=== PATIENT | female | born 1945 | race African-American/Black ===

== ENCOUNTER 2019-05-16 08:24 | Outpatient (CLI) | payer OTHER, SELFPAY ==
--- NOTE | 2019-05-24 23:30 | SLEEP_ITS ---
CPAP Titration DATE OF STUDY: 05/16/2019 ORDERING PHYSICIAN: Dayanna Spicer M.D. REASON FOR THIS STUDY: Home sleep test showing mild obstructive sleep apnea. HISTORY: This patient is a 73-year-old female, 63 inches tall, weighing 239 pounds with a body mass index of 42.3. On a prior sleep study 02/07/2019, the apnea-hypopnea index was 12.2 with a minimum desaturation of 80%. She presents now for a CPAP titration. MEDICAL COMORBIDITIES: 1. Hypertension. 2. Gastroesophageal reflux disease. 3. Concentration impairment. DESCRIPTION OF THE STUDY: On the Huron Sleepiness Scale, the score is 17/24. This was conducted as a full night CPAP titration using the FlightCaster multiple channel system including EOG, EEG, submental EMG, EKG, nasal and oral airflow using thermistors and nasal pressure sensors, chest and abdominal belts, body position data and pulse oximetry. The study was scored using CMS guidelines. The duration of the study was 547.3 minutes. The sleep time was 407.1 minutes. The sleep efficiency was 74.4%. Sleep latency was 24.7 minutes. REM latency was 101 minutes. The patient spent 22.1% of the study awake after sleep onset, 115.5 minutes. Sleep architecture showed 5% stage I sleep, 50.1% stage II sleep, 11.5% stage III sleep, and 9.4% stage REM. The patient spent 38% of this study supine. Sleep was fragmented with frequent shifts between wake, stage I, stage II, and REM. The apnea-hypopnea index overall was 4.4, obstructive index 3.5, and the central index 0.6. The patient had 1 obstructive hypopnea in supine REM and 1 obstructive apnea in supine REM for an index of 5.1. There was 1 obstructive apnea and 1 obstructive hypopnea in non-supine non-REM for an index of 4.7. In supine non-REM, she had 3 obstructive apneas, 3 central apneas, 2 mixed apneas, and 12 obstructive hypopneas for an index of 6.7. In non-supine non-REM, she had 1 obstructive apnea, 1 central apnea, 4 obstructive hypopneas for an index of 2.0. The supine index was 6.6. Non-supine index 2.3. The minimum desaturation was 88% and no time was spent below that. There were 24 desaturations of 4% or greater for an index of 2.6. The mean saturation was 95.5%. AROUSALS: One hundred sixty-nine arousals for an index of 18.5. There were 4 apneas for an index of 0.4, 8 hypopneas for an index of 0.9, 28 snores for an index of 3.1, 51 spontaneous for an index of 5.6, and 78 limb movements for an index of 8.6. LIMB MOVEMENTS: Nine hundred one isolated limb movements for an index of 132.8. There were 24 periodic limb movements for an index of 3.5. EKG: Sinus rhythm, mean heart rate 75, maximum heart rate was 132. EEG: Unremarkable. The patient used a RespirVideoLens Radha View small full face mask. CPAP was titrated from 5 cm up to 16 cm. There were very few centrals throughout the study. At 16 cm, the patient spent 36 minutes in bed, 28 minutes in non-REM sleep without REM. The sleep efficiency was 81%. Minimum saturation was 92%. This did appear to be the optimal pressure. IMPRESSION: 1. This CPAP titration shows an optimal pressure of 16 cm of water pressure using a heated humidifier and a small Radha View mask. This should be used with all episodes of sleep. The patient should not drive until daytime sleepiness resolves. 2. Severe periodic limb movement disorder, G47.61. The patient had a preponderance of limb movements throughout the night, although these may improve with regular use of CPAP. This degree of limb movements likely will need independent treatment. We would recommend evaluating for anemia and if the ferritin is less than 50, replacing with iron until the ferritin is greater than 50. Evaluate for precipitating factors such as excessive
== END 2019-05-16 08:25 | disposition home or self-care (01) ==
LOC: ANHCSM 08:25
PROVIDERS: Visit Provider Family Medicine
DX: G47.33 Obstructive sleep apnea (adult) (pediatric) (principal); G47.10 Hypersomnia, unspecified; I10 Essential (primary) hypertension; K21.9 Gastro-esophageal reflux disease without esophagitis; G47.61 Periodic limb movement disorder
CPT/HCPCS: 95811

== ENCOUNTER 2019-05-17 07:44 | Outpatient (CLI) | payer OTHER, SELFPAY ==
[2019-05-17 08:16] LABS: Hematocrit 39.1 % (37.0-47.0); Hemoglobin 11.8 g/dL (12.0-15.0); Mean Corpuscular HGB Conc 30.2 g/dl (32-36); Mean Corpuscular Hemoglobin 25.8 pg (26-34); Mean Corpuscular Volume 85.4 fl (80-100); Mean Platelet Volume 10.9 fl (7.4-10.4); Platelet Count Result 226 k/mm3 (150-375); Red Blood Count 4.58 M/mm3 (4.2-5.4); Red Cell Distribution Width 16.6 % (11.5-14.5); White Blood Count 7.1 K/mm3 (4.5-10.0)
[2019-05-17 08:30] LABS: Alanine Aminotransferase 14 U/L (4-35); Albumin Level 4.1 g/dL (3.5-5.1); Alkaline Phosphatase 81 U/L (38-126); Aspartate Amino Transferase 18 U/L (14-36); Bilirubin,Total 0.3 mg/dL (0.2-1.3); Blood Urea Nitrogen 20 mg/dL (7-17); Calcium 9.4 mg/dL (8.4-10.2); Carbon Dioxide 30 mmol/L (22-30); Chloride 102 mmol/L (98-107); Cholesterol 131 mg/dL (0-200); Estimated Glomerular Filt Rate 45; Glucose 101 mg/dL (65-105); HDL Direct 32 mg/dL; Potassium 3.5 mmol/L (3.4-5.0); Sodium 144 mmol/L (137-145); Triglycerides 66 mg/dL (<150)
[2019-05-17 08:41] LABS: LDL Cholesterol Direct 76 mg/dL
== END 2019-05-17 07:45 | disposition home or self-care (01) ==
PROVIDERS: PCP Family Medicine; Visit Provider Family Medicine
DX: I10 Essential (primary) hypertension (principal)
CPT/HCPCS: 36415; 80053; 80061; 85027

== ENCOUNTER 2019-12-03 13:51 | Outpatient (CLI) | payer OTHER, SELFPAY ==
--- NOTE | ~2019-12-03 | XR_ITS ---
EXAMINATION: XR knee LT 2V DATE: 12/03/2019 14:08 INDICATION: Left knee pain. TECHNIQUE: 2 views of left knee were obtained. COMPARISON: None. FINDINGS: There is lateral subluxation of tibia with respect to distal femur. No fracture. There is m oderate osteoarthritis of medial and patellofemoral compartments and mild osteoarthritis of lateral c ompartment. There is a small knee joint effusion with loose body. IMPRESSION: 1. Moderate left knee osteoarthritis. 2. Small left knee joint effusion with loose body. Reviewed, dictated and finalized at location A.
--- NOTE | ~2019-12-03 | XR_ITS ---
EXAMINATION: XR knee RT 2V DATE: 12/03/2019 14:07 INDICATION: Right knee pain. TECHNIQUE: 2 views of right knee were obtained. COMPARISON: None. FINDINGS: There is varus angulation at the knee. No fracture. There is severe osteoarthritis of media l compartment and moderate osteoarthritis of lateral and patellofemoral compartments. No knee joint e ffusion. IMPRESSION: 1. Severe right knee osteoarthritis. Reviewed, dictated and finalized at location A.
== END 2019-12-03 13:52 | disposition home or self-care (01) ==
LOC: ANHIMG 13:55
PROVIDERS: PCP Family Medicine; Visit Provider Nurse Practitioner Family
DX: M17.0 Bilateral primary osteoarthritis of knee (principal); M25.462 Effusion, left knee; M23.42 Loose body in knee, left knee
CPT/HCPCS: 73560

== ENCOUNTER 2020-01-28 12:48 | Outpatient (CLI) | payer OTHER, SELFPAY ==
--- NOTE | ~2020-01-28 | DEXA_ITS ---
Bone Density Report Name: Lesia Weiner Age: 74 Sex: Female Ethnicity: Black Date of : 1945 Indication: osteopenia; cancer; Referring Provider: PHYSICIAN NOT ON STAFF Study: Bone densitometry was performed. Exam Date: January 28, 2020 Accession number: [id number] Bone Density: Region BMD T-score Z-score Classification AP Spine (L1, L3, L4) 0.894 -1.4 0.3 Osteopenia Femoral Neck (Left) 0.711 -1.2 -0.1 Osteopenia Total Hip (Left) 1.013 0.6 1.2 Normal Total Hip Bilateral Avg 0.963 0.2 0.9 Normal Femoral Neck (Right) 0.642 -1.9 -0.6 Osteopenia Total Hip (Right) 0.912 -0.2 0.5 Normal World Health Organization criteria for BMD impression classify patients as: Normal (T-score at or above -1.0), Osteopenia (T-score between -1.0 and -2.5), or Osteoporosis (T-score at or below -2.5). 10-year Fracture Risk(1): Major Osteoporotic Fracture 4.9% Hip Fracture 1.1% Reported Risk Factors: [place] ([place]), Neck BMD=0.642, BMI=39.8 (1) FRAX(R) Version 3.08. Fracture probability calculated for an untreated patient. Fracture probability may be lower if the patient has received treatment. Previous Exams: Region Exam Age BMD T-score BMD Change BMD Change Date g/cm2 vs Baseline vs Previous AP Spine(L1, L3, L4) 01/28/2020 74 0.894 -1.4 0.005(0.6%) 0.043(5.1%)# 08/10/2017 71 0.851 -1.8 -0.038(-4.2%)# -0.038(-4.2%)# 05/13/2014 68 0.888 -1.5 Total Hip(Left) 01/28/2020 74 1.013 0.6 0.040(4.1%)* 0.034(3.5%)* 08/10/2017 71 0.980 0.3 0.006(0.6%) 0.006(0.6%) 05/13/2014 68 0.974 0.3 Total Hip(Right) 01/28/2020 74 0.912 -0.2 0.032(3.7%)* 0.045(5.2%)# 08/10/2017 71 0.867 -0.6 -0.012(-1.4%)# -0.012(-1.4%)# 05/13/2014 68 0.879 -0.5 *Denotes significance at 95% confidence level, LSC for AP Spine = 0.022 g/cm2, LSC for Total Hip = 0.027 g/cm2 Clinical Information Provided by Patient: Has used the following medications: Vitamin D, Calcium Has the following medical conditions: Cancer Patient maximum height was 64 Menopause Age: 59 No regular weight bearing exercise Onset of menses at age 11 Number of children 4 Impression: The patient has low bone mass, based on the Right Femoral Neck T-score. The patient has an estimated ten-year risk of hip fracture of 1.1% and an estimated ten-year risk of major fracture of 4.9%, based on the WHO FRAX algorithm. No significant bone loss was observed.
== END 2020-01-28 12:49 | disposition home or self-care (01) ==
LOC: ANHIMG 12:54
PROVIDERS: PCP Family Medicine
DX: C50.312 Malignant neoplasm of lower-inner quadrant of left female breast (principal); Z17.0 Estrogen receptor positive status [ER+]; Z79.811 Long term (current) use of aromatase inhibitors; M85.852 Other specified disorders of bone density and structure, left thigh; M85.851 Other specified disorders of bone density and structure, right thigh; M85.88 Other specified disorders of bone density and structure, other site
CPT/HCPCS: 77080

== ENCOUNTER 2020-02-26 00:09 | Outpatient (CLI) | payer OTHER, SELFPAY ==
[2020-02-26 21:15] LABS: SARS-CoV-2 RNA PCR Negative
== END 2020-02-26 00:10 | disposition home or self-care (01) ==
LOC: ANHCOVIDDT 00:09
PROVIDERS: PCP Family Medicine; Visit Provider Internal Medicine Critical Care Medicine
DX: U07.1 COVID-19 (principal)
CPT/HCPCS: 87635; C9803; U0003

== ENCOUNTER 2020-02-28 07:27 | Outpatient (CLI) | payer OTHER, SELFPAY ==
--- NOTE | 2020-04-15 14:33 | WPDSLEEPSTUD ---
Sleep Study Date of Study: 02/28/20 Ordering Provider: Lyndsey Barr NP Interpreting Physician: Lalitha Newton MD Sleep Study Type: CPAP Titration Height: 1.6 m Weight: 108.409 kg Body Mass Index: 42.3 Neck Circumference: 43.18 cm [place]: 7 Reason for Sleep Study JEANNA Sleep History Lesia Weiner is a 74 year-old female with a history of obstructive sleep apnea a home sleep test 02/07/2019 with an [place] of 17, fatigue, headaches, nightmares, memory impairment, concentration impairment, hypertension and GERD. The apnea-hypopnea index was 12.2 with a minimum desaturation of 85% with a CPAP titration recommended, and she now presents for the titration. She has hypertension and depression as a co-morbidities that allow the titration with mild JEANNA. She has a history of loud snoring during sleep with difficulty falling asleep. Her sister also has sleep disordered breathing. She snores loudly and others complain about it. She frequently has trouble sleeping with a cold. She rarely gasps for breath at night. She does not have breathing problems at night reported to her by others. She does not sweat excessively at night or notices her heart pounding or beating irregularly and night. She rarely falls asleep during the day, never involuntarily and never while driving. She does not fall asleep during physical effort. She does not have loss of muscle tone was strong emotion. She does not have daytime difficulties due to excessive sleepiness, now retired. She does not feel paralyzed on waking or falling asleep. She frequently has vivid dreamlike scenes upon awakening or falling asleep. She is not afraid to go to sleep. she rarely has nightmares. She occasionally remembers her dreams. She occasionally has racing thoughts. She frequently feels sad or depressed. She occasionally feels anxiety. She frequently has muscular tension. She does not notice parts of her body jerking at night. She occasionally kicks at night. She does not have crawling or aching feelings in her legs at night and does not have leg pain during the night. She denies morning jaw pain, and does not grind her teeth during sleep. She occasionally bothered by pain during the day. she is not awakened by pain at night. She frequently wakes up feeling stiff in the morning with sore or achy muscles and pain in the neck and spine joints. She rarely has memory problems. Normal bedtime is 8:00 p.m.taking 1-2 hours to fall asleep, typically waking twice at night. When she wakes during the night, she may stay awake for 1 hour. She estimates getting 6 hours of sleep at night. She sometimes feels refreshed after short nap. She feels better in the afternoon compared to the morning. [facility] Past Medical History Medical History CKD (chronic kidney disease) stage 3, GFR 30-59 ml/min Depression Essential (primary) hypertension GERD without esophagitis H/O malignant neoplasm of breast (~10/2018) Left breast - radiation and chemo thru 03/2019 History of tobacco use Osteoarthritis of both knees (~2002) Osteopenia Sleep apnea (~04/2019) CPAP Spondylosis of cervical joint Uterine fibroid Surgical History Surgical History H/O total mastectomy of left breast (~10/2018) History of bladder suspension procedure (~1984) History of colonoscopy with polypectomy (~10/2018) Family History Family History Father Family history of liver disease Mother Family history of kidney disease Social History Social History Social History: , 1 adult daughter lives nearby. Patient lives alone. Retired. Smoking status: Former smoker Tobacco type: cigarettes Smoking end date: 04/03/85 Additional smoking assessment comments: 1 pack/week for about 15 years Medicatio
[2020-04-15 15:36] VITALS: BMI 42.3
== END 2020-02-28 07:28 | disposition home or self-care (01) ==
LOC: ANHCSM 07:28
PROVIDERS: PCP Family Medicine; Visit Provider Nurse Practitioner Family
DX: G47.33 Obstructive sleep apnea (adult) (pediatric) (principal)
CPT/HCPCS: 95811

== ENCOUNTER 2020-05-08 12:38 | Outpatient (CLI) | payer OTHER, SELFPAY ==
--- NOTE | ~2020-05-08 | US_ITS ---
EXAMINATION: US pelvic complete w TV DATE: 05/08/2020 13:27 INDICATION: Follow-up uterine fibroids. Pelvic pain. Comparison:No prior studies for comparison. TECHNIQUE: Multiple transabdominal and endovaginal sonographic images of the pelvis performed. FINDINGS: The uterus measures 9.4 x 6.8 x 9 cm. There are multiple uterine fibroids, largest measurin g up to 4.2 cm. The endometrial complex measures 6 mm. The right ovary measures 2.7 x 0.8 x 2.6 cm and the left ovary measures 1.9 x 1.4 x 1.3 cm. There ar e small follicles in each ovary. There is no free fluid in the pelvis. There are no abnormal masses seen on either side. IMPRESSION: 1. Enlarged uterus containing multiple fibroids, largest measuring up to 4.2 cm. 2: Thickened endomtrial complex. The differential diagnosis includes endometrial hyperplasia, polyp a nd carcinoma. Biopsy is recommended. Reviewed, dictated and finalized at location A. INATION PROCTOR IMPRESSION: 1. Enlarged uterus containing multiple fibroids, largest measuring up to 4.2 cm . 2: Thickened endomtrial complex. The differential diagnosis includes endometria l hyperplasia, polyp and carcinoma. Biopsy is recommended.
== END 2020-05-08 12:39 | disposition home or self-care (01) ==
PROVIDERS: PCP Family Medicine; Visit Provider Obstetrics & Gynecology
DX: D21.9 Benign neoplasm of connective and other soft tissue, unspecified (principal)
CPT/HCPCS: 76830; 76856

== ENCOUNTER 2021-03-02 09:15 | Outpatient (CLI) | payer OTHER, SELFPAY ==
[2021-03-02 09:42] LABS: Basophils Percent Auto 0.8 % (0.2-1.2); Eosinophils Absolute Auto 0.1 K/mm3 (0-0.3); Eosinophils Percent Auto 2.4 % (0-4.4); Hematocrit 40.6 % (37.0-47.0); Hemoglobin 12.9 g/dL (12.0-15.0); Immature Granulocyte Absolute 0.02 K/mm3 (0.00-0.031); Immature Granulocyte Percent A 0.4 % (0-0.5); Lymphocytes Absolute Auto 1.71 K/mm3 (0.9-3.2); Lymphocytes Percent Auto 33.7 % (18.3-44.2); Mean Corpuscular HGB Conc 31.8 g/dl (32-36); Mean Corpuscular Hemoglobin 26.9 pg (26-34); Mean Corpuscular Volume 84.8 fl (80-100); Mean Platelet Volume 11.1 fl (7.4-10.4); Monocytes Absolute Auto 0.4 K/mm3 (0.1-0.6); Monocytes Percent Auto 8.7 % (2.6-8.5); Neutrophils Absolute Auto 2.8 K/mm3 (1.3-6.7); Platelet Count Result 220 k/mm3 (150-375); Red Blood Count 4.79 M/mm3 (4.2-5.4); White Blood Count 5.1 K/mm3 (4.5-10.0)
[2021-03-02 09:56] LABS: Alanine Aminotransferase 11 U/L (4-35); Albumin Level 4.3 g/dL (3.5-5.1); Alkaline Phosphatase 79 U/L (38-126); Anion Gap 7 mmol/L (8-16); Aspartate Amino Transferase 18 U/L (14-36); Bilirubin,Total 0.6 mg/dL (0.2-1.3); Blood Urea Nitrogen 13 mg/dL (7-17); Calcium 9.8 mg/dL (8.4-10.2); Carbon Dioxide 30 mmol/L (22-30); Chloride 102 mmol/L (98-107); Cholesterol 160 mg/dL (0-200); Estimated Glomerular Filt Rate > 60; Glucose 98 mg/dL (65-110); HDL Direct 41 mg/dL; Potassium 3.5 mmol/L (3.4-5.0); Sodium 139 mmol/L (137-145); Triglycerides 108 mg/dL (<150)
[2021-03-02 10:08] LABS: LDL Cholesterol Direct 74 mg/dL
[2021-03-02 10:25] LABS: Vitamin D 25 Hydroxy 51.1 ng/mL
== END 2021-03-02 09:16 | disposition home or self-care (01) ==
LOC: ANHLAB 09:17
PROVIDERS: PCP Family Medicine; Visit Provider Family Medicine
DX: E55.9 Vitamin D deficiency, unspecified (principal); Z13.220 Encounter for screening for lipoid disorders; Z00.00 Encounter for general adult medical examination without abnormal findings; I10 Essential (primary) hypertension
CPT/HCPCS: 36415; 80053; 80061; 82306; 84443; 85025

== ENCOUNTER 2021-08-05 15:27 | Outpatient (CLI) | payer OTHER, SELFPAY ==
--- NOTE | ~2021-08-05 | XR_ITS ---
XR foot LT min 3V DATE: 08/05/2021 15:48 INDICATION: Painful lump at the dorsal medial foot TECHNIQUE: 4 views COMPARISON: None FINDINGS: Diffuse osteopenia. Prominent plantar and posterior calcaneal enthesopathy. No fracture or dislocation, periosteal reaction or bone destruction. There is osteoarthritis at the first tarsometatarsal joint. IMPRESSION: Osteopenia Prominent plantar and posterior calcaneal enthesopathy Osteoarthritis at first tarsometatarsal joint. Reviewed, dictated and finalized at location A.
== END 2021-08-05 15:28 | disposition home or self-care (01) ==
LOC: ANHIMG 15:32
PROVIDERS: PCP Family Medicine; Visit Provider Family Medicine
DX: M89.8X9 Other specified disorders of bone, unspecified site (principal); M77.32 Calcaneal spur, left foot; M19.072 Primary osteoarthritis, left ankle and foot
CPT/HCPCS: 73630

== ENCOUNTER 2022-03-03 10:55 | Outpatient (CLI) | payer OTHER, SELFPAY ==
[2022-03-03 12:11] LABS: Basophils Percent Auto 0.7 % (0.2-1.2); Eosinophils Absolute Auto 0.1 K/mm3 (0-0.3); Eosinophils Percent Auto 1.1 % (0-4.4); Hematocrit 42.4 % (37.0-47.0); Hemoglobin 13.2 g/dL (12.0-15.0); Immature Granulocyte Absolute 0.01 K/mm3 (0.00-0.031); Immature Granulocyte Percent A 0.2 % (0-0.5); Lymphocytes Absolute Auto 1.91 K/mm3 (0.9-3.2); Lymphocytes Percent Auto 34.1 % (18.3-44.2); Mean Corpuscular HGB Conc 31.1 g/dl (32-36); Mean Corpuscular Hemoglobin 26.7 pg (26-34); Mean Corpuscular Volume 85.7 fl (80-100); Mean Platelet Volume 11.5 fl (7.4-10.4); Monocytes Absolute Auto 0.6 K/mm3 (0.1-0.6); Monocytes Percent Auto 9.8 % (2.6-8.5); Neutrophils Percent Auto 54.1 % (45.5-73.1); Platelet Count Result 246 k/mm3 (150-375); Red Blood Count 4.95 M/mm3 (4.2-5.4); Red Cell Distribution Width 15.8 % (11.5-14.5); White Blood Count 5.6 K/mm3 (4.5-10.0)
[2022-03-03 12:26] LABS: Alanine Aminotransferase 14 U/L (6-35); Albumin Level 4.2 g/dL (3.5-5.1); Alkaline Phosphatase 84 U/L (38-126); Anion Gap 7 mmol/L (8-16); Aspartate Amino Transferase 18 U/L (14-36); Bilirubin,Total 0.7 mg/dL (0.2-1.3); Blood Urea Nitrogen 13 mg/dL (7-17); Calcium 9.2 mg/dL (8.4-10.2); Carbon Dioxide 31 mmol/L (22-30); Chloride 104 mmol/L (98-107); Cholesterol 137 mg/dL (0-200); Estimated Glomerular Filt Rate > 60; Glucose 90 mg/dL (65-110); HDL Direct 35 mg/dL; Potassium 3.5 mmol/L (3.4-5.0); Sodium 142 mmol/L (137-145); Triglycerides 68 mg/dL (<150)
[2022-03-03 12:37] LABS: LDL Cholesterol Direct 65 mg/dL
[2022-03-03 12:55] LABS: Vitamin D 25 Hydroxy 36.4 ng/mL
== END 2022-03-03 10:56 | disposition home or self-care (01) ==
LOC: ANHLAB 10:59
PROVIDERS: PCP Family Medicine; Visit Provider Family Medicine
DX: Z13.220 Encounter for screening for lipoid disorders (principal); E66.01 Morbid (severe) obesity due to excess calories; E53.8 Deficiency of other specified B group vitamins; I10 Essential (primary) hypertension; E55.9 Vitamin D deficiency, unspecified
CPT/HCPCS: 36415; 80053; 80061; 82306; 82607; 84443; 85025

== ENCOUNTER 2022-08-30 10:49 | Outpatient (CLI) | payer OTHER, SELFPAY ==
[2022-08-30 14:31] LABS: Alanine Aminotransferase 16 U/L (6-35); Alkaline Phosphatase 70 U/L (38-126); Anion Gap 4 mmol/L (8-16); Aspartate Amino Transferase 25 U/L (14-36); Bilirubin,Total 0.4 mg/dL (0.2-1.3); Blood Urea Nitrogen 16 mg/dL (7-17); Calcium 9.2 mg/dL (8.4-10.2); Carbon Dioxide 34 mmol/L (22-30); Chloride 104 mmol/L (98-107); Estimated Glomerular Filt Rate > 60; Glucose 89 mg/dL (65-110); Potassium 3.3 mmol/L (3.4-5.0); Sodium 142 mmol/L (137-145)
== END 2022-08-30 10:50 | disposition home or self-care (01) ==
LOC: ANHGOSHLAB 10:50
PROVIDERS: PCP Family Medicine; Visit Provider Family Medicine
DX: F32.9 Major depressive disorder, single episode, unspecified (principal); I10 Essential (primary) hypertension; Z79.899 Other long term (current) drug therapy
CPT/HCPCS: 36415; 80053

== ENCOUNTER 2023-03-09 09:47 | Outpatient (CLI) | payer OTHER, SELFPAY ==
[2023-03-09 12:25] LABS: Basophils Percent Auto 0.1 % (0.2-1.2); Eosinophils Percent Auto 0.4 % (0-4.4); Hematocrit 30.9 % (37.0-47.0); Hemoglobin 9.5 g/dL (12.0-15.0); Immature Granulocyte Absolute 0.03 K/mm3 (0.00-0.031); Immature Granulocyte Percent A 0.4 % (0-0.5); Lymphocytes Absolute Auto 1.12 K/mm3 (0.9-3.2); Lymphocytes Percent Auto 14.1 % (18.3-44.2); Mean Corpuscular HGB Conc 30.7 g/dl (32-36); Mean Corpuscular Hemoglobin 24.9 pg (26-34); Mean Corpuscular Volume 80.9 fl (80-100); Mean Platelet Volume 11.4 fl (7.4-10.4); Monocytes Absolute Auto 0.5 K/mm3 (0.1-0.6); Monocytes Percent Auto 6.6 % (2.6-8.5); Neutrophils Absolute Auto 6.2 K/mm3 (1.3-6.7); Neutrophils Percent Auto 78.4 % (45.5-73.1); Platelet Count Result 271 k/mm3 (150-375); Red Blood Count 3.82 M/mm3 (4.2-5.4); Red Cell Distribution Width 17.1 % (11.5-14.5); White Blood Count 7.9 K/mm3 (4.5-10.0)
[2023-03-09 12:54] LABS: Alanine Aminotransferase 12 U/L (6-35); Alkaline Phosphatase 75 U/L (38-126); Anion Gap 8 mmol/L (8-16); Aspartate Amino Transferase 20 U/L (14-36); Bilirubin,Total 0.7 mg/dL (0.2-1.3); Blood Urea Nitrogen 14 mg/dL (7-17); Calcium 9.3 mg/dL (8.4-10.2); Carbon Dioxide 28 mmol/L (22-30); Chloride 105 mmol/L (98-107); Cholesterol 137 mg/dL (0-200); Estimated Glomerular Filt Rate > 60; Glucose 84 mg/dL (65-110); HDL Direct 40 mg/dL; Potassium 3.3 mmol/L (3.4-5.0); Sodium 141 mmol/L (137-145); Triglycerides 58 mg/dL (<150)
[2023-03-09 13:05] LABS: LDL Cholesterol Direct 71 mg/dL
[2023-03-09 13:38] LABS: Hemoglobin A1C 5.4 % (<5.7)
[2023-03-09 13:41] LABS: Vitamin D 25 Hydroxy 32.1 ng/mL
[2023-03-09 13:54] LABS: Thyroid Stimulating Hormone Reflex 0.978 uIU/mL (0.465-4.68)
== END 2023-03-09 09:48 | disposition home or self-care (01) ==
LOC: ANHLAB 09:53
PROVIDERS: PCP Family Medicine; Visit Provider Family Medicine
DX: E78.5 Hyperlipidemia, unspecified (principal); R73.9 Hyperglycemia, unspecified; I10 Essential (primary) hypertension; E55.9 Vitamin D deficiency, unspecified; E53.8 Deficiency of other specified B group vitamins; M85.89 Other specified disorders of bone density and structure, multiple sites
CPT/HCPCS: 36415; 80053; 80061; 82306; 82607; 83036; 84443; 85025

== ENCOUNTER 2023-04-07 10:32 | Outpatient (CLI) | payer OTHER, SELFPAY ==
[2023-04-07 11:03] LABS: Basophils Percent Auto 0.7 % (0.2-1.2); Eosinophils Absolute Auto 0.1 K/mm3 (0-0.3); Eosinophils Percent Auto 1.2 % (0-4.4); Hematocrit 31.6 % (37.0-47.0); Hemoglobin 9.8 g/dL (12.0-15.0); Immature Granulocyte Absolute 0.01 K/mm3 (0.00-0.031); Immature Granulocyte Percent A 0.2 % (0-0.5); Lymphocytes Absolute Auto 1.52 K/mm3 (0.9-3.2); Lymphocytes Percent Auto 25.3 % (18.3-44.2); Mean Corpuscular Hemoglobin 24.5 pg (26-34); Mean Platelet Volume 10.4 fl (7.4-10.4); Monocytes Absolute Auto 0.5 K/mm3 (0.1-0.6); Monocytes Percent Auto 7.8 % (2.6-8.5); Neutrophils Absolute Auto 3.9 K/mm3 (1.3-6.7); Neutrophils Percent Auto 64.8 % (45.5-73.1); Platelet Count Result 270 k/mm3 (150-375)
[2023-04-07 11:19] LABS: Alanine Aminotransferase 12 U/L (6-35); Albumin Level 3.9 g/dL (3.5-5.1); Alkaline Phosphatase 71 U/L (38-126); Anion Gap 9 mmol/L (8-16); Aspartate Amino Transferase 20 U/L (14-36); Bilirubin,Total 0.6 mg/dL (0.2-1.3); Blood Urea Nitrogen 12 mg/dL (7-17); Carbon Dioxide 26 mmol/L (22-30); Chloride 104 mmol/L (98-107); Estimated Glomerular Filt Rate > 60; Glucose 94 mg/dL (65-110); Sodium 139 mmol/L (137-145)
[2023-04-07 11:22] LABS: Iron 48 ug/dL (37-170)
[2023-04-07 11:32] LABS: Percent Iron Saturation 13 % (20-50)
[2023-04-21 09:29] LABS: IFOB Positive Control Positive; Immunochemical Fecal Occult Bl Negative (N)
== END 2023-04-07 10:33 | disposition home or self-care (01) ==
PROVIDERS: PCP Family Medicine; Visit Provider Family Medicine
DX: D64.9 Anemia, unspecified (principal); E87.6 Hypokalemia; I10 Essential (primary) hypertension; M85.89 Other specified disorders of bone density and structure, multiple sites
CPT/HCPCS: 36415; 80053; 82274; 82728; 83540; 83550; 85025

== ENCOUNTER 2024-03-25 12:08 | Outpatient (CLI) | payer OTHER, SELFPAY ==
[2024-03-25 12:49] LABS: Basophils Absolute Auto 0.1 K/mm3 (0.0-0.1); Eosinophils Absolute Auto 0.1 K/mm3 (0-0.3); Hematocrit 43.5 % (37.0-47.0); Immature Granulocyte Absolute 0.01 K/mm3 (0.00-0.031); Immature Granulocyte Percent A 0.2 % (0-0.5); Lymphocytes Absolute Auto 1.63 K/mm3 (0.9-3.2); Lymphocytes Percent Auto 32.8 % (18.3-44.2); Mean Corpuscular HGB Conc 32.2 g/dl (32-36); Mean Corpuscular Hemoglobin 27.3 pg (26-34); Mean Platelet Volume 11.3 fl (7.4-10.4); Monocytes Absolute Auto 0.4 K/mm3 (0.1-0.6); Neutrophils Absolute Auto 2.8 K/mm3 (1.3-6.7); Platelet Count Result 251 k/mm3 (150-375); Red Blood Count 5.12 M/mm3 (4.2-5.4); Red Cell Distribution Width 14.3 % (11.5-14.5)
[2024-03-25 13:16] LABS: Alanine Aminotransferase 10 U/L (6-35); Albumin Level 3.9 g/dL (3.5-5.1); Alkaline Phosphatase 79 U/L (38-126); Anion Gap 3 mmol/L (4-12); Aspartate Amino Transferase 16 U/L (14-36); Bilirubin,Total 0.7 mg/dL (0.2-1.3); Blood Urea Nitrogen 15 mg/dL (7-17); Calcium 9.3 mg/dL (8.4-10.2); Carbon Dioxide 32 mmol/L (22-30); Chloride 105 mmol/L (98-107); Cholesterol 140 mg/dL (0-200); Estimated Glomerular Filt Rate > 60; Glucose 85 mg/dL (65-110); HDL Direct 38 mg/dL; Potassium 2.9 mmol/L (3.4-5.0); Sodium 140 mmol/L (137-145); Triglycerides 87 mg/dL (<150)
[2024-03-25 13:27] LABS: LDL Cholesterol Direct 57 mg/dL
[2024-03-25 13:34] LABS: Iron 97 ug/dL (37-170)
[2024-03-25 13:45] LABS: Percent Iron Saturation 34 % (20-50)
[2024-03-25 13:51] LABS: Hemoglobin A1C 5.7 % (<5.7)
[2024-03-25 14:07] LABS: Thyroid Stimulating Hormone Reflex 0.905 uIU/mL (0.465-4.68)
[2024-03-25 14:22] LABS: Folic Acid 3.9 ng/mL (2.76->20); Vitamin D 25 Hydroxy 78.6 ng/mL
== END 2024-03-25 12:09 | disposition home or self-care (01) ==
PROVIDERS: PCP Family Medicine; Visit Provider Family Medicine
DX: F32.A Depression, unspecified (principal); R73.9 Hyperglycemia, unspecified; D64.9 Anemia, unspecified; E55.9 Vitamin D deficiency, unspecified; E78.5 Hyperlipidemia, unspecified; I10 Essential (primary) hypertension
CPT/HCPCS: 36415; 80053; 80061; 82306; 82607; 82728; 82746; 83036; 83540; 83550; 84443; 85025

== ENCOUNTER 2024-05-09 12:43 | Outpatient (CLI) | payer MEDICARE, SELFPAY ==
--- OUTSIDE RECORDS SUMMARY | 2024-05-09 12:47 | XMS_ITS | Encounter Summary ---
Author Organization [facility] Address [address] [place] [address] Phone Care Team Providers Care Reliability Specialist Name Role Phone Mauricio Bucio MD Unavailable [phone] Jordy Perez MD Unavailable Be Gomez MD Unavailable Stephanie Davidson PhD Unavailable [phone] Tram Alejandro MD Unavailable [phone] John Bellamy NP Primary Care Provider Lolis Leyva MD Primary Care Provider Emerald Brown MD Unavailable [phone] Encounter Details Date Type Department Care Team (Latest Contact Info) Description 01/28/2020 Orders Only [facility] Scanning, Provider Social History Tobacco Use Types Packs/Day Years Used Date Smoking Tobacco: Former Cigarettes 0.3 22 1 963 - 1985 Smokeless Tobacco: Never Alcohol Use Standard Drinks/Week Comments Never 0 (1 standard drink = 0.6 oz pur e alcohol) rare Humiliation, Afraid, Rape, and Kick questionnair e Answer Date Recorded Fear of Current or Ex-Partner No Emotionally Abused No 06/14/2018 Physically Abused No 06/14/2018 Sexually Abused No 06/14/2018 AUDIT-C Answer Date Recorded Frequency of Alcohol Consumption Monthly or less 06/22/2018 Average Number of Drinks Not on file 019 Frequency of Binge Drinking Not on file 06/02 [facility] - Occupational Stress Questionnaire Answer Date Recorded Feeling of Stress Very much 06/14/2018 Exercise Vital Sign Answer Date Recorde d Days of Exercise per Week 0 days 2018 Minutes of Exercise per Session 0 min 06/14/2018 Comments No Sex and Gender Information Value Date Recorded Sex Assigned at Not on file Legal Sex 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 Gender Identity Not on file Sexual Orientation Not on file 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 file documented as of this encounter Plan of Treatment Not on file documented as of this encounter Procedures Procedure Name Priority Date/Time Associated Diagnosis Comments SCAN - RADIOLOGY/IMAGING 01/28/2020 documented in this encounter Results * SCAN - RADIOLOGY/IMAGING (01/28/2020) Anatomical Region Laterality Modality Other us Provider Scanning Final Result documented in this encounter Visit Diagnoses Not on filedocumented in this encounter Care Teams Reliability Specialist Relationship Specialty Start Date End Date John Bellamy NP [address] [place] [address] PCP - General 01/08/20 05/11/20 Lolis Leyva MD [address] [place] [address] PCP - General Family Practice 05/12/20 Mauricio Bucio MD [address] [place] [address] Referring Physician Surgical Oncology 06/08/18 Jordy Perez MD [address] [facility] [address] [place], [place] [id number] Radiation Oncologist Radiation Oncology 06/08/18 Be Gomez MD [address] [place] [address] Referring Physician Medical Oncology 06/14/18 01/03/21 Stephanie Davidson, PhD [address] [place] [address] Nurse Practitioner Radiation Oncology 06/14/18 Tram Alejandro MD [address] [address] Referring Physician Gastroenterology 08/13/18 StephanieEmerald zaldivar MD [address] [place] [address] [address] [place] [address] Surgeon Breast Surgery 01/04/21 07/13/21 documented as of this encounter
--- OUTSIDE RECORDS SUMMARY | 2024-05-09 12:47 | XMS_ITS | Continuity of Care Document ---
Author Organization [facility] Address [address] [place] [address] Phone Care Team Providers Care Senior Military Analyst Name Role Phone Jaron Garcia Unavailable Unavailable Procedures Procedure Date Post-op Follow-up Visit Post-op Follow-up Visit Post-op Follow-up Visit Remove Cataract, Insert Lens Office/outpatient Visit, Est Echo Exam Of Eye Office/outpatient Visit, Est Eye Exam & Treatment Refraction Eye Exam & Treatment Refraction Eye Exam, New Patient Advance Directives Directive Yes / No Effective Date File Name No Information Encounters Encounter Description Practice Location Reason(s) For Visit Diagnoses Date Provider Providers Copied on Encounter [facility], [address] [place] [address] [address], [place], [place], [id number], tel:[phone] [facility] No Information 6-201 0 Radha Salmeron. [address] [facility] , [address], [place], [address], [place]. tel:[phone] [facility], [address] [place] [address] [address], [place], [place], [id number], [place] tel:[phone] [facility] No Information 2-201 0 Radha Salmeron. [address], [address], [place], [address], [place]. tel:[phone] [facility], [address] [place] [address] [address], [place], [place], [id number], [place] tel:[phone] [facility] No Information Mar- 7-201 0 Radha Edjose. [address] [place], [place] [address]ate Center , [address], [place], [place], [facility], . tel:[phone] Referring Provider: Will Dixon, [facility] [address], [place], [place], [facility]. tel:[phone] [facility], [address] [place] [address] [address], [place], [place], [id number], [place] tel:[phone] [facility] No Information Jun- 6-201 0 Radha Edjose. [address] [place], [place] [address] , [address], [place], [place], [facility], [place]. tel:[phone] Referring Provider: Will Dixon, [facility] [address], [place], [place], [facility]. tel:[phone] Office/outpat ient Visit, [facility], [address] [place] [address] [address], [place], [place], [id number], [place] tel:[phone] [facility] Center No Information Jun-1 2-201 0 [facility]ose. [facility] , [address], [place], [place], [facility], [place]. tel:[phone] Referring Provider: Jaron Dixon, [facility] [address], [place], [facility]. tel:[phone] Office/outpat ient Visit, [facility], [address] [place] [address] [address], [place], [place], [id number], [place] tel:[phone] [facility] Corporate Center No Information Apr- 5-200 9 Radha Edjose. [facility] , [address], [place], [place], [facility], [place]. tel:[phone] Referring Provider: Will Diehl OD A, [address] [place], [place] [address], [place], [facility]. tel:[phone] [facility], [address], [place], [place], [id number], tel:[phone] [facility] No Information Mar-2 5-200 9 Diehl OD Will. [address] [place] [address] Center , [address], [place], [address], [place]. tel:[phone] [facility], [address], [place], [place], [id number], tel:[phone] [facility] No Information Mar-1 9-200 8 Diehl OD Will. [address] [place] [address] , [address], [place], [address], [place]. tel:[phone] [facility], [address], [place], [place], [id number], [place] tel:[phone] [facility] No Information Mar-1 3-200 7 Floriilsa Rogelio. [address] [facility], [address], [place], [place], [id number], [place]. tel:[phone] Family History Family Member Type Diagnosis Age At Onset No Information Payers Payer name Insurance type Covered republican ID Authoriza tion(s) No Information Social History Type Description Quantity Date Captured Comments Sex Female Smoking Status No Information Chief Complaint And Reason For Visit No Information Reason For Referral Reason For Referral No Information History Of Present Illness Encounter Date Complaint History Of Prese nt Illness No Information Functional Status Date Functional Assessmen t No Information Instructions Date Instruction Additional Infor mation No Information Assessments Type Assessment Date No Information Patient Care Teams Name Effective Dates (start - stop) Status Members No Information
--- OUTSIDE RECORDS SUMMARY | 2024-05-09 12:47 | XMS_ITS | Encounter Summary ---
Author Organization [facility] Address [address] [place] [address] Phone Care Team Providers Care Conditioning Coach Name Role Phone Mauricio Bucio MD Unavailable [phone] Jordy Perez MD Unavailable John Bellamy CHARGE MASTER COORDINATOR Primary Care Provider [phone] Be Gomez MD Unavailable [phone] Stephanie Davidson PhD Unavailable [phone] Tram Alejandro MD Unavailable [phone] John Bellamy CHARGE MASTER COORDINATOR Primary Care Provider [phone] Lolis Leyva MD Primary Care Provider Emerald Brown MD Unavailable [phone] Encounter Details Date Type Department Care Team (Late st Contact Info) Description 12/06/2018 Social Work [facility] Oncology [address] [facility] [address] [place] [address] Nimisha Velázquez, [address] [place] [address] Social History Tobacco Use Types Packs/Day Years Used Date Smoking Tobacco: Former Cigarettes 0.3 22 1 963 - 1985 Smokeless Tobacco: Never Alcohol Use Standard Drinks/Week Comments Yes 0 (1 standard drink = 0.6 oz [...] of Binge Drinking Not on file 06/02 [facility] [place] of Occupat ional Health - Occupational Stress Questionnaire Answer Date Recorded Feeling of Stress Very much 06/14/2018 Exercise Vital Sign Answer Date Recorde d Days of Exercise per Week 0 days 2018 Minutes of Exercise per Session 0 min 06/14/2018 Comments No Sex and Gender Information Value Date Recorded Sex Assigned at Not on file Legal Sex Female 6:19 PM ORACLE DATABASE MANAGER Gender Identity Not on file Sexual Orientation Not on file 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 Sex: female (home) Address: [address] [place] [address] PCP: John TSE received PC from patient, patient states she is wanting to send a bill to [facility] but cannot find the number. SW provided patient with phone number for [facility] to [place]. No additional needs at this time. I will remain available to assist as needed. SAMIR Salazar documented in this encounter Plan of Treatment Not on file documented as of this encounter Visit Diagnoses Not on filedocumented in this encounter Care Teams Conditioning Coach Relationship Specialty Start Date End Date John Bellamy NP [address] [facility] [address] [place] [address] PCP - General 06/09/18 01/07/20 John Bellamy NP [address] [place] [address] PCP - General 01/08/20 05/11/20 Lolis Leyva MD [address] [place] [address] [address] [place] [address] PCP - General Family Practice 05/12/20 Mauricio Bucio MD [address] [place] [address] Referring Physician Surgical Oncology 06/08/18 Jordy Perez MD [address] [place] [address] Radiation Oncologist Radiation Oncology 06/08/18 Be Gomez MD [address] [place] [address] Referring Physician Medical Oncology 06/14/18 01/03/21 Stephanie Davidson, PhD [address] [facility] [address] [place] [address] Nurse Practitioner Radiation Oncology 06/14/18 Tram Alejandro MD [address] [address] Referring Physician Gastroenterology 08/13/18 Emerald Brown MD [address] [place] [address] [address] [place] [address] Surgeon Breast Surgery 01/04/21 07/13/21 documented as of this encounter
--- OUTSIDE RECORDS SUMMARY | 2024-05-09 12:47 | XMS_ITS | Encounter Summary ---
Author Organization [facility] Address [address] [place] [address] Care Team Providers Care Risk Management Internship Name Role Phone Mauricio Bucio MD Unavailable [phone] Jordy Perez MD Unavailable Be Gomez MD Unavailable [phone] Stephanie Davidson PhD Unavailable [phone] Tram Alejandro MD Unavailable [phone] Lolis Leyva MD Primary Care Provider [place]ald zaldivar MD Unavailable [phone] Encounter Details Date Type Department Care Team (Late st Contact Info) Description 05/27/2020 Telephone [facility] [address] [place] [address] Catherine Fragoso, RT Social History Tobacco Use Types Packs/Day Years [...] of Binge Drinking Not on file 06/02 [facility] [place] of Occupat ional Health - Occupational Stress Questionnaire Answer Date Recorded Feeling of Stress Very much 06/14/2018 Exercise Vital Sign Answer Date Recorde d Days of Exercise per Week 0 days 2018 Minutes of Exercise per Session 0 min 06/14/2018 Comments No Sex and Gender Information Value Date Recorded Sex Assigned at Not on file Legal Sex Female 6:19 PM CORPORATE REPRESENTATIVE Gender Identity Not on file Sexual Orientation [...] on filedocumented in this encounter Care Teams Risk Management Internship Relationship Specialty Start Date End Date Lolis Leyva MD [address] [facility] 2 [place], [place] [id number] PCP - General Family Practice 05/12/20 Mauricio Bucio MD [address] [place] [address] Referring Physician Surgical Oncology 06/08/18 Jordy Perez MD [address] LL [facility] [address] [place] [address] Radiation Oncologist Radiation Oncology 06/08/18 Be Gomez MD [address] [place] [address] Referring Physician Medical Oncology 06/14/18 01/03/21 Stephanie Davidson, PhD [address] [place] [address] Nurse Practitioner Radiation Oncology 06/14/18 Tram Alejandro MD [address] [address] Referring Physician Gastroenterology 08/13/18 Emerald Brown MD [facility] [facility] [address] [place] [address] Surgeon Breast Surgery 01/04/21 07/13/21 documented as of this encounter
--- OUTSIDE RECORDS SUMMARY | 2024-05-09 12:47 | XMS_ITS | Referral Summary ---
Author Organization [facility] Address [address] [place] [address] Care Team Providers Care Well Site Drilling Engineer Name Role Phone Mauricio Bucio MD Unavailable [phone] Jrody Perez MD Unavailable Stephanie Davidson PhD Unavailable [phone] Tram Alejandro MD Unavailable [phone] Lolis Leyva MD Primary Care Provider Encounters Date Type Department Care Team Description 04/05/2024 10:30 AM ACCOUNTING GENERALIST - 04/05/2024 11:59 PM [facility] Hospital Encounter [facility] Imaging and Radiology [address] [place] [address] Breast cancer screening by mammogram Discharge Disposition: Discharge to home or self care from Last 3 Months Allergies No known active allergies Medications omeprazole (PriLOSEC) 20 mg capsuleIndicat ions:acid reflux Take 1 capsule (20 mg total) by mouth every morning 8 Active aspirin 81 mg tablet Take 1 tablet (81 mg total) by mouth every morning Active cholecalcifero l (VITAMIN D-3) 5,000 unit capsule Take 1 capsule (5,000 Units total) by mouth every morning Active prochlorperazi ne (COMPAZINE) 5 mg tablet Take 2 tablets (10 mg total) by mouth every 6 (six) hours as needed for nausea or vomiting (Try first for nausea and vomiting) 100 tablet 2 9 Active triamterene-hy droCHLOROthiaz virgen (MAXZIDE,DYAZI DE) 37.5-25 mg per tablet/capsule 8 Active traZODone (DESYREL) 50 mg tablet TAKE 1 TABLET BY MOUTH AT BEDTIME NEEDED FOR SLEEP 1 Active triamcinolone (Kenalog) 10 mg/mL injection Kenalog 10 mg/mL suspension for injection In office injection administered by the provider Active lidocaine (XYLOCAINE) 10 mg/mL (1 %) injection lidocaine (PF) 10 mg/mL (1 %) injection solution In office injection administered by the provider Active Ozempic 1 mg/dose (4 mg/3 mL) pen injector injection INJECT 1MG SUBCUTANEOUSLY WEEKLY 3 Active potassium chloride ER 10 mEq CR tablet Take 1 tablet/capsule (10 mEq total) by mouth daily 3 Active ferrous sulfate ER 324 mg (65 mg iron) EC tablet Take 1 tablet (324 mg total) by mouth daily 4 Active Active Problems Problem Noted Date Diagnosed Date L4-5 facet synovitis 06/30/2020 Lumbar spondylosis 06/30/2020 Cervical spondylosis 06/30/2020 Iron deficiency anemia 11/15/2018 Encounter for follow-up surveillance of breast c ancer 10/23/2018 ferry terminal agent current use of aromatase inhibitor Prevention of bone loss 10/23/2018 Malignant neoplasm of lower- inner quadrant of left breast in female, estrogen receptor positive 05/03/2018 Cancer Staging:Clinical stage from 05/15/2018:Stage IA(cT1c, cN0, cM0, G3, ER+, NH+, HER2+) - Signed by Stephanie Davidson, PhD on 06/14/2018 Pathologic stage from 05/15/2018:Stage IA(pT1b(m), pN0(sn), cM0, G3, ER+, NH+, HER2+) - Signed by Stephanie Davidson, PhD on 06/14/2018 Overview (05/03/2018): Added automatically from request for surgery [id number] Left breast mass 04/20/2018 Encounter for general adult medical examination without abnormal findings 02/03/2012 Overview (06/24/2020): Colonoscope done -normal as per pt. To obtain records Flu shot given. Shingles not available at this time -scheduled for mammogram and dexa scan -will do Pap smear at next visit -rtc in 3 months - Essential (primary) hypertension 02/03/2012 Overview (06/24/2020): Well controlled on triamterene/hctz Plan: Cont as before -obtain CMP /lipid panel Gastro-esophageal reflux disease without esophag itis 02/03/2012 Overview (06/24/2020): Well controlled Plan: Increase to 40 mg of omeprazole Plantar fascial fibromatosis 02/03/2012 Overview (06/24/2020): complains of lt heel pain. Started recently . Exam un remarkable Plan: Gave instruction for some exercises -use heel pad -rtc in 3 months Primary osteoarthritis of one knee 02/03/2012 Overview (06/24/2020): Arthritis of both knees. Takes aleve frequently for pain. Has not seen orthopedics in long time. Denies any morning stiffness. Plan: Advised not to use the aleve as it can cause ulceration/kidney damage. Advised to use high dose tylenol as needed -obtain knee xray. Will send to orthopedics if worse at next visit and depending how the xray look. -may benefit from physical therapy Vitamin D deficiency 02/03/2012 Overview (06/24/2020): Prescribed Ergocalciferol . Recheck levels Immunizations Name Administration Dates Next Due Influenza, Split 02/03/2012 Pfizer SARS-CoV-2 Monovalent Vaccination (12+ Yrs) PURPLE 08/03/2020,07/11/2020 Pneumococcal Conjugate PCV 13 06/08/2018 Pneumococcal Polysaccharide PPV23 05/11/2020 Social History Tobacco Use Types Packs/Day Years [...] of Binge Drinking Not on file 06/02 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 file Last Filed Vital Signs Vital Sign Reading Time Taken Comments Blood Pressure 126/75 08/18/2023 10:56 AM CDT Pulse 74 08/18/2023 10:56 AM CDT Temperature 36.8 C (98.2 F) 08/18/2023 10:56 AM CDT Respiratory Rate 20 08/18/2023 10:56 AM CDT Oxygen Saturation 98% 08/18/2023 10:56 AM CDT Inhaled Oxygen Concentration - - Weight 92 kg (202 lb 12.8 oz) 08/18/2023 10:56 A M CDT Height 162.6 cm (5' 4 ) 01/28/2022 9:05 AM CDT Body Mass Index 34.81 01/28/2022 9:05 AM CDT Plan of Treatment Not on file Medical Devices Explanted Type Area Section Housekeeper Device Identifier Shelf Expiration Date Model / Serial / Lot [employer] Peripheral Vascular [id number] Powerport Clearvue Airguard 8fr 1 Lumen Lightweight Intermediate Latex Free - [id number] Implanted:Qty: 1 on 07/06/2018 by Mauricio Bucio MD at [facility] Explanted:Qty: 1 on 01/08/2020 at [facility] Right: Subclavian [employer] Peripheral [employer] [id number] / / Procedures Procedure Name Priority Date/Time Associated Diagnosis Comments SCREENING MAMMOGRAM BILATERAL W JESSICA Schedule Routine, Read Routine (OP Routine) 04/05/2024 11:18 AM ACCOUNTING GENERALIST Breast cancer screening by mammogram DEXA AXIAL SKELETON BONE DENSITY 1 OR MORE SITES Schedule Routine, Read Routine (OP Routine) 06/06/2022 10:25 AM ACCOUNTING GENERALIST nursing home current use of aromatase inhibitor from Last 3 Months or Most Recently Relevant to Health Maintenance Results * Screening Mammogram Bilateral W Jessica (04/05/2024 11:18 AM ACCOUNTING GENERALIST) Anatomical Region Laterality Modality Breast Bilateral Mammography 04/05/2024 11:5 9 AM ACCOUNTING GENERALIST Impressions 04/05/2024 11:59 AM ACCOUNTING GENERALIST No evidence of malignancy in either breast. FINAL ASSESSMENT: BI-RADS Category 2: Benign. RECOMMENDATION: Recommend return for annual screening mammogram in 12 months. Electronically signed by: Callie Crawford M.D. Narrative 04/05/2024 11:59 AM ACCOUNTING GENERALIST EXAMINATION: BILATERAL SCREENING MAMMOGRAM COMPARISON: All prior mammograms dating back to 2019. TECHNIQUE: Full-field 2D and digital breast tomosynthesis (DBT) images were obtained. CAD was utilized. BREAST PARENCHYMAL COMPOSITION: There are scattered areas of fibroglandular density. FINDINGS: There are post-treatment changes in the left breast. There is no suspicious mass, distortion, or calcification in either breast. There has been no significant interval change from the previous study. Balbina Christina NP IMG MAMMO PROCEDURES Final Result * Dexa Axial Skeleton Bone Density 1 or 2 Site (06/06/2022 10:25 AM ACCOUNTING GENERALIST) Anatomical Region Laterality Modality Body N/A Other 06/06/2022 5:20 PM ACCOUNTING GENERALIST Narrative 06/06/2022 5:21 PM ACCOUNTING GENERALIST EXAM DESCRIPTION: DEXA AXIAL SKELETON BONE DENSITY 1 OR MORE SITES REASON FOR STUDY: 76 y/o year old F with given history of screening. Postmenopausal Section Housekeeper/Model: [employer] (S/N [id number]) CLINICAL INFORMATION: Current height: 64 inches Maximum height: 64 inches Weight: 227 pounds Risk factors: Cancer, postmenopausal COMPARISON: 05/28/2020. FINDINGS: AP LUMBAR SPINE L1-L4: Total BMD is 0.843 g/cm2 T-score is -1.9 Dissimilar scan types or analysis methods precludes assessment for calculating a significant change. LEFT HIP: Total BMD is 0.933 g/cm2 T-score is -0.1 Dissimilar scan types or analysis methods precludes assessment for calculating a significant change. Femoral neck BMD is 0.668 g/cm2 T-score is -1.6 FRAX: 10 year risk for a major osteoporotic fracture is 5.2 %, 10 year risk for a hip fracture is 1.1 % IMPRESSION: Based on the lumbar spine bone mineral density (T-score -1.9 ) the patient has low bone mass . REFERENCE: Bone mineral density: Normal (T-score above or = -1.0) Low bone mass (T-score between -1.0 and -2.5) replaces the previously used term osteopenia Osteoporosis (T-score = or below -2.5) Medical evaluation for secondary causes of low bone mineral density may be appropriate. FRAX is a World Health Organization validated fracture risk assessment tool that calculates a person's 10 year probability of a major osteoporosis related fracture and hip fracture. According to the National Osteoporosis Foundation guidelines, postmenopausal women and men age 50 or older with low bone mass and a 10 year probability of a major osteoporosis related fracture = or greater than 20% or a 10 year probability of a hip fracture = or greater than 3% should be considered for treatment. For further information, including treatment recommendations, please refer to the 2013 ISCD Official Positions (http://www.iscd.org) and the NOF's Clinician's Guide to Prevention and Treatment of Osteoporosis (http://www.nof.org/professionals/clinical-guidelines) THIS IS AN ELECTRONICALLY VERIFIED FINAL REPORT 06/06/2022 5:21 PM - Electronically signed by Pablo Magaña M.D. MF: ROSA Report ID: [id number] Reading Location: [place] [address] Procedure Note Pablo Magaña MD - 06/06/2022 EXAM DESCRIPTION: DEXA AXIAL SKELETON BONE DENSITY 1 OR MORE SITES REASON FOR STUDY: 76 y/o year old F with given history ofscreening. Postmenopausal Section Housekeeper/Model: [employer] SL (S/N [id number]) CLINICAL INFORMATION: Current height: 64 inches Maximum height: 64 inches Weight: 227 pounds Risk factors: Cancer, postmenopausal COMPARISON: 05/28/2020. FINDINGS: AP LUMBAR SPINE L1-L4: Total BMD is 0.843 g/cm2 T-score is -1.9 Dissimilar scan types or analysis methods precludes assessment for calculating a significant change. LEFT HIP: Total BMD is 0.933 g/cm2 T-score is -0.1 Dissimilar scan types or analysis methods precludes assessment for calculating a significant change. Femoral neck BMD is 0.668 g/cm2 T-score is -1.6 FRAX: 10 year risk for a major osteoporotic fracture is 5.2 %, 10 year risk fora hip fracture is 1.1 % IMPRESSION: Based on the lumbar spine bone mineral density (T-score -1.9 ) the patient has low bone mass . REFERENCE: Bone mineral density: Normal (T-score above or = -1.0) Low bone mass (T-score between -1.0 and -2.5) replaces thepreviously used term osteopenia Osteoporosis (T-score = or below -2.5) Medical evaluation for secondary causes of low bone mineral density may be appropriate. FRAX is a World Health Organization validated fracture risk assessmenttool that calculates a person's 10 year probability of a major osteoporosisrelated fracture and hip fracture. According to the National OsteoporosisFoundation guidelines, postmenopausal women and men age 50 or older with low bonemass and a 10 year probability of a major osteoporosis related fracture = or greater than 20% or a 10 year probability of a hip fracture = or greaterthan 3% should be considered for treatment. For further information, including treatment recommendations, please referto the 2013 ISCD Official Positions (http://www.iscd.org) and the NOF's Clinician's Guide to Prevention and Treatment of Osteoporosis (http://www.nof.org/professionals/clinical-guidelines) THIS IS AN ELECTRONICALLY VERIFIED FINAL REPORT 06/06/2022 5:21 PM - Electronically signed by Pablo Magaña M.D. MF: ROSA Report ID: [id number] Reading Location: [place] [address] Balbina Van Christina [employer] GRADER IMG DXA PROCEDURES Final R esult from Last 3 Months or Most Recently Relevant to Health Maintenance Insurance HEALTHCARE HEALTHCARE WELLCARE MEDICARE HMO WELLCARE MEDICARE HMO Care Teams Well Site Drilling Engineer Relationship Specialty Start Date End Date Lolis Leyva MD [address] [facility] 2 [place] [address] PCP - General Family Practice 05/12/20 Mauricio Bucio MD [address] [place] [address] Referring Physician Surgical Oncology 06/08/18 Jordy Perez MD [address] [place] [address] Radiation Oncologist Radiation Oncology 06/08/18 Stephanie Davidson, PhD [address] [place] [address] Nurse Practitioner Radiation Oncology 06/14/18 Tram Alejandro MD [address] [address] Referring Physician Gastroenterology 08/13/18
--- OUTSIDE RECORDS SUMMARY | 2024-05-09 12:47 | XMS_ITS | Clinical Summary ---
Author Organization [facility] Address [address] [place] [address] Care Team Providers Care Software Reliability Engineer Name Role Phone Mauricio Bucio MD Unavailable [phone] Jordy Perez MD Unavailable Stephanie Davidson PhD Unavailable [phone] Tram Alejandro MD Unavailable [phone] Lolis Leyva MD Primary Care Provider Allergies No known active allergies Medications omeprazole [...] BY MOUTH AT BEDTIME NEEDED FOR SLEEP 02/15/202 1 Active triamcinolone (Kenalog) 10 mg/mL injection [...] follow-up surveillance of breast c ancer 10/23/2018 halfway current use of aromatase inhibitor Prevention of bone loss 10/23/2018 Malignant neoplasm of lower- inner quadrant of left breast in female, estrogen receptor positive 05/03/2018 Cancer Staging:Clinical stage from 05/15/2018:Stage IA(cT1c, cN0, cM0, G3, ER+, [place]+, HER2+) - Signed by Stephanie Davidson, PhD on 06/14/2018 Pathologic stage from 05/15/2018:Stage IA(pT1b(m), pN0(sn), cM0, G3, ER+, [place]+, HER2+) - Signed by Stephanie Davidson, PhD on 06/14/2018 Overview (05/03/2018): Added automatically from request for surgery [id number] Left breast mass 04/20/2018 Encounter for general [...] Overview (06/24/2020): Prescribed Ergocalciferol . Recheck levels Encounters Date Type Department Care Team Description 04/05/2024 10:30 AM ENGINEER ASSISTANT - 04/05/2024 11:59 PM ENGINEER ASSISTANT Hospital Encounter [facility] [address] [place] [address] Breast cancer screening by mammogram Discharge Disposition: Discharge to home or self care from Last 3 Months Immunizations Name Administration Dates Next Due Influenza, Split 02/03/2012 Pfizer SARS-CoV-2 Monovalent Vaccination (12+ Yrs) PURPLE 08/03/2020,07/11/2020 Pneumococcal Conjugate PCV 13 06/08/2018 Pneumococcal Polysaccharide PPV23 05/11/2020 Surgical History Surgery Date Site/Laterality Comments KNEE ARTHROSCOPY 01/01/1999 - 01/31/1999 BLADDER SUSPENSION 04/03/1984 - 04/02/1985 MASTECTOMY, PARTIAL 05/15/2018 Left LEFT BREAST BRACKETED NEEDLE LOCALIZATION PARTIAL MASTECTOMY COLONOSCOPY W/ POLYPECTOMY 04/23/2018 BREAST BIOPSY Medical History Medical History Date Comments Hypertension Arthritis Breast cancer (HCC) Breast mass Acid reflux Vitamin D deficiency Sleep apnea Family History Medical History Relation Name Comments Heart disease Brother 1 Heart disease Brother 2 Breast cancer Sister Ovarian cancer Neg Hx Pancreatic cancer Neg Hx Prostate cancer Neg Hx Relation Name Status Comments Brother 1 Brother 2 Father Mother Sister Social History Tobacco Use Types Packs/Day Years [...] of Binge Drinking Not on file 06/02 [facility] of Occupat ional Health - Occupational Stress Questionnaire Answer Date Recorded Feeling of Stress Very much 06/14/2018 Exercise Vital Sign Answer Date Recorde d Days of Exercise per Week 0 days 2018 Minutes of Exercise per Session 0 min 06/14/2018 Comments No Sex and Gender Information Value Date Recorded Sex Assigned at Not on file Legal Sex Female 6:19 PM ENGINEER ASSISTANT Gender Identity Not on file Sexual Orientation Not on file 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 file Obstetrics History Para Term AB IAB SAB Ectopic Multiple Livin g Live Births 4 4 4 Date Outcome GA Total Labor Labor/2nd/3rd Weight Sex Type Anes PTL Leeann A1 A5 Name Clin Term Term Term Term Last Filed Vital Signs Vital Sign Reading [...] 01/28/2022 9:05 AM CDT Plan of Treatment Health Maintenance Due Date Last Done Comments Depression Screening 1945 Hepatitis C Screening 1945 DTaP/Tdap/Td Vaccine (1 - Tdap) 09/18/1955 Hepatitis B Screening 1962 Zoster Vaccine (1 of 2) 1994 Well Visit 65+ 2009 Fall Risk Assessment 01/07/2021 01/08/2020 Covid-19 Vaccine ( season) 12/03/202306/2020, 07/11/2020 Influenza Vaccine (#1) 2023 02/03/2012 Osteoporosis Screening-Bone Density Scan 06/06/2024 06/06/2022, 05/28/2020 Pneumococcal vaccine 65+ Completed 05/11/2020, 11/2018 Medical Devices Explanted Type Area Supply Chain Vice President Device Identifier Shelf Expiration Date Model / Serial / Lot [employer] Peripheral V[employer] [id number] Powerport Clearvue Airguard 8fr 1 Lumen Lightweight Intermediate Latex Free - [id number] Implanted:Qty: 1 on 07/06/2018 by Mauricio Bucio MD at [facility] Explanted:Qty: 1 on 01/08/2020 at [facility] Right: Subclavian [employer] [id number] / / Procedures Procedure Name Priority Date/Time Associated Diagnosis Comments SCREENING MAMMOGRAM BILATERAL W RAY Schedule Routine, Read Routine (OP Routine) 04/05/2024 11:18 AM ENGINEER ASSISTANT Breast cancer screening by mammogram DEXA AXIAL SKELETON BONE DENSITY 1 OR MORE SITES Schedule Routine, Read Routine (OP Routine) 06/06/2022 10:25 AM ENGINEER ASSISTANT 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 FINAL ASSESSMENT: BI-RADS Category 2: Benign. RECOMMENDATION: Recommend return for annual screening mammogram in 12 months. Electronically signed by: Callie Crawford M.D. Narrative 04/05/2024 11:59 AM ENGINEER ASSISTANT EXAMINATION: BILATERAL SCREENING MAMMOGRAM COMPARISON: All prior [...] from the previous study. Balbina Christina NP IM MAMMO PROCEDURES Final Result * Dexa Axial Skeleton Bone Density 1 or 2 Site (06/06/2022 10:25 AM ENGINEER ASSISTANT) Anatomical Region Laterality Modality Body N/A Other 06/06/2022 5:20 PM ENGINEER ASSISTANT Narrative 06/06/2022 5:21 PM ENGINEER ASSISTANT EXAM DESCRIPTION: DEXA AXIAL SKELETON BONE DENSITY 1 OR MORE SITES REASON FOR STUDY: 76 y/o year old F with given history of screening. Postmenopausal Supply Chain Vice President/Model: [employer] SL (S/N [id number]) CLINICAL INFORMATION: Current height: 64 inches Maximum [...] Pablo Magaña M.D. MF: ROSA Report ID: [id number] Reading Location: [place] [address] Procedure Note Pablo Magaña MD - 06/06/2022 EXAM DESCRIPTION: DEXA AXIAL SKELETON BONE DENSITY 1 OR MORE SITES REASON FOR STUDY: 76 y/o year old F with given history ofscreening. Postmenopausal Supply Chain Vice President/Model: [employer] SL (S/N [id number]) CLINICAL INFORMATION: Current height: 64 inches Maximum [...] Pablo Magaña M.D. MF: ROSA Report ID: [id number] Reading Location: [place] [address] Balbina Christina NP IMG DXA PROCEDURES Final R esult from Last 3 Months or Most Recently Relevant to Health Maintenance Insurance [facility] MEDICARE HMO [facility] MEDICARE O Care Teams Software Reliability Engineer Relationship Specialty Start Date End Date Lolis Leyva MD [address] [facility] [address] [place] [address] PCP - General Family Practice 05/12/20 Mauricio Bucio MD [address] [place] [address] Referring Physician Surgical Oncology 06/08/18 Jordy Perez MD [address] [place] [address] Radiation Oncologist Radiation Oncology 06/08/18 Stephanie Davidson, PhD [address] [place] [address] Nurse Practitioner Radiation Oncology 06/14/18 Tram Alejandro MD [address] [address] Referring Physician Gastroenterology 08/13/18
--- OUTSIDE RECORDS SUMMARY | 2024-05-09 12:47 | XMS_ITS | Encounter Summary ---
Author Organization [facility] Address [address] [place] [address] Phone Care Team Providers Care Hairspring Ii Inspector Name Role Phone John Bellamy NP Primary Care Provider + [phone] Mauricio Bucio MD Unavailable [phone] Jordy Perez MD Unavailable Luís Rodriguez MD Primary Care Provider + [phone] John Bellamy NP Primary Care Provider + [phone] Be Gomez MD Unavailable [phone] Stephanie Davidson PhD Unavailable [phone] Tram Alejandro MD Unavailable [phone] John Bellamy NURSING SCHEDULER Primary Care Provider [phone] Lolis Leyva MD Primary Care Provider Emerald Brown MD Unavailable [phone] Encounter Details Date Type Department Care Team (Latest Contact Info) Description 08/10/2017 Orders Only [facility] Scanning, Provider Social History Tobacco Use Types Packs/Day Years Used Date Smoking Tobacco: Never Assessed Comments Unknown Sex and Gender Information Value Date Recorded Sex Assigned at Not on file 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 Gender Identity Not on file Sexual Orientation Not on file documented as of this encounter Plan of Treatment Not on file documented as of this encounter Procedures Procedure Name Priority Date/Time Associated Diagnosis Comments SCAN - RADIOLOGY/IMAGING 08/10/2017 documented in this encounter Results * SCAN - RADIOLOGY/IMAGING (08/10/2017) Anatomical Region Laterality Modality Other us Provider Scanning Final Result documented in this encounter Visit Diagnoses Not on filedocumented in this encounter Care Teams Hairspring Ii Inspector Relationship Specialty Start Date End Date John Bellamy NP PCP - General Nurse Practitioner 03/23/18 06/07/18 Luís Rodriguez MD [address] [place] [address] PCP - General Family Practice 06/08/18 06/08/18 John Bellamy NP PCP - General 06/09/18 01/07/20 John Bellamy NP [address] [place] [address] PCP - General 01/08/20 05/11/20 Lolis Leyva MD [address] [facility] [address] [place], [place] [address] PCP - General Family Practice 05/12/20 Mauricio Bucio MD [address] [place], [place] [id number] Referring Physician Surgical Oncology 06/08/18 Jordy Perez MD [address] [facility] [address] [place], [place] [address] Radiation Oncologist Radiation Oncology 06/08/18 Be Gomez MD [address] [place] [address] Referring Physician Medical Oncology 06/14/18 01/03/21 Stephanie Davidson, PhD [address] [place] [address] Nurse Practitioner Radiation Oncology 06/14/18 Tram Alejandro MD [address] [address] Referring Physician Gastroenterology 08/13/18 Emerald Brown MD [address] [place] [address] [address] [place], [place] [id number] Surgeon Breast Surgery 01/04/21 07/13/21 documented as of this encounter
--- OUTSIDE RECORDS SUMMARY | 2024-05-09 12:47 | XMS_ITS ---
Author Organization [facility] Address [address] [place] [address] Care Team Providers Care Medical Doctor Nuclear Medicine Name Role Phone Mauricio Bucio MD Unavailable Jordy Perez MD Unavailable Stephanie Davidson PhD Unavailable [phone] Tram Alejandro MD Unavailable [phone] Lolis Leyva MD Primary Care Provider Active Problems Problem Noted Date Diagnosed Date L4-5 facet synovitis 06/30/2020 Lumbar spondylosis 06/30/2020 Cervical spondylosis 06/30/2020 Iron deficiency anemia 11/15/2018 Encounter for follow-up surveillance of breast c ancer 10/23/2018 shelter current use of aromatase inhibitor Prevention of bone loss 10/23/2018 Malignant neoplasm of lower- inner quadrant of left breast in female, estrogen receptor positive 05/03/2018 Cancer Staging:Clinical stage from 05/15/2018:Stage IA(cT1c, cN0, cM0, G3, ER+, [place]+, HER2+) - Signed by Stephanie Davidson, PhD on 06/14/2018 Pathologic stage from 05/15/2018:Stage IA(pT1b(m), pN0(sn), cM0, G3, ER+, [place]+, HER2+) - Signed by Stephanie Davidson, PhD on 06/14/2018 Overview (05/03/2018): Added automatically from request for surgery [id number] Left breast mass 04/20/2018 Encounter for general [...] Overview (06/24/2020): Prescribed Ergocalciferol . Recheck levels Current Oncology Plans No current plan information found. Other Current Plans ZOLEDRONIC ACID (ZOMETA) INFUSION* Plan Start Date:11/13/2018 Plan Provider:Balbina Christina NP Linked Problems Encounter for follow-up surv eillance of breast cancerLong term current use of aromatase inhibitorBone disorder Treatment Medications No medications scheduled. Past Plans Line Care Plan Name Start Date Discontinue Date Treatment Medications Discontinue Reason Plan Provider IV MAINTENANCE THERAPY PLAN 07/23/2021 06/13/2023 No medications scheduled. Automatic discontinuation of dormant plans Balbina Christina, KAREN IV MAINTENANCE THERAPY PLAN 10/23/2018 07/13/2021 No medications scheduled. Therapy Complete Be Gomez MD Oncology Chemotherapy Treatment Plan Name Start Date Discontinue Date Treatment Medications Discontinue Reason Plan Provider Cycles PACLItaxel / Trastuzumab Weekly x 4 Cycles then Trastuzumab Q21 Days - Breast 07/09/2018 08/19/2019 PACLitaxel (TAXOL)PACLItaxe l (TAXOL) IVPB in 250 mLtrastuzumab (HERCEPTIN)trast uzumab (HERCEPTIN) IVPB Therapy Complete Be Gomez MD 17 of 17 cycles started Oncology Supportive Care Plan Name Start Date Discontinue Date Treatment Medications Discontinue Reason Plan Provider 12 MONTHS - POST-SCT VACCINATIONS 06/08/2018 10/23/2018 No medications scheduled. Therapy Complete Be Gomez MD Specialty Infusion Treatment Plan Name Start Date Discontinue Date Treatment Medications Discontinue Reason Plan Provider IV MAINTENANCE THERAPY PLAN 11/13/2018 04/08/2019 No medications scheduled. Therapy Complete Be Gomez MD IV MAINTENANCE THERAPY PLAN 07/09/2018 10/23/2018 No medications scheduled. Therapy Complete Be Gomez MD Radiation Treatments * Plan Last Treated On Elapsed Days Fractions Treated Prescribed Fraction Dose Prescribed Total Dose nonDIBH BOOST 01/09/2019 33 8 200 cGy 1,600 cGy nonDIBH L BR:1 12/28/2018 21 15 266 cGy 3,990 cGy nonDIBH L BR 12/07/2018 0 1 266 cGy 4,256 c Gy Reference Point Last Treated On Elapsed Days Session Dose Total Dose BOOST DPV 01/09/2019 33 200 cGy 1,600 cGy NON DIBH_DPV 12/28/2018 21 266 cGy 4,256 cGy Lifetime Dose Tracking * Chemical Lifetime Dose Automatic Entry Manual Entr y Fluoro Time 0.172 minutes 0.172 minutes 0 minutes Air kerma at the reference point (Ka,r) 2.95 mGy 2 .95 mGy 0 mGy
--- OUTSIDE RECORDS SUMMARY | 2024-05-09 12:47 | XMS_ITS | Clinical Summary ---
Author Organization [facility] Address [address], [facility] [address] [place] [address] Phone Care Team Providers Care Criminology Teacher Name Role Phone Luís Rodriguez MD Primary Care Provider Allergies No known active allergies Medications cyclobenzaprine (FLEXERIL) 10 MG Tablet TK 1 T PO TID PRN FOR MUSCLE SPASM 0 03/24/2018 Active omeprazole (PRILOSEC) 20 MG CAPSULE DELAYED RELEASE Take 20 mg by mouth daily. 02/01/2018 Active triamterene-hydr ochlorothiazide (DYAZIDE) 37.5-25 MG Capsule 01/22/2018 Active aspirin EC 81 MG Tablet Delayed Response Take 81 mg by mouth daily. Active Ferrous Sulfate (IRON) 325 (65 Fe) MG Tablet Take 1 Tab by mouth daily. Active Cholecalciferol (VITAMIN D PO) Take 1 Tab by mouth daily. Active Active Problems No known active problems Family History Medical History Relation Name Comments Hypertension Father Hypertension Mother Cancer Sister breast Relation Name Status Comments Father Mother Sister Social History Tobacco Use Types Packs/Day Years Used Date Smoking Tobacco: Former Cigarettes 0.3 35 1 05/29/1947 - 03/28/1983 Smokeless Tobacco: Former Chew Quit: 03/28/1970 Comments:quit 1982 Alcohol Use Standard Drinks/Week Comments No 0 (1 standard drink = 0.6 oz pur e alcohol) Comments Unknown Sex and Gender Information Value Date Recorded Sex Assigned at Not on file Legal Sex Female 9:13 PM CDT Gender Identity Not on file Sexual Orientation Not on file Last Filed Vital Signs Vital Sign Reading Time Taken Comments Blood Pressure 109/62 11/14/2018 8:06 AM CDT Pulse 74 11/14/2018 8:06 AM CDT Temperature 36 C (96.8 F) 11/14/2018 8:06 AM CDT Respiratory Rate 14 11/14/2018 8:06 AM CDT Oxygen Saturation 98% 11/14/2018 8:06 AM CDT Inhaled Oxygen Concentration - - Weight 99.8 kg (220 lb) 11/14/2018 6:29 AM CDT Height 162.6 cm (5' 4 ) 11/14/2018 6:29 AM CDT Body Mass Index 37.76 11/14/2018 6:29 AM CDT Plan of Treatment Health Maintenance Due Date Last Done Comments Hepatitis C Virus (HCV) Screening 1945 Mammogram Unilateral 1945 TdaP Immunization 1945 Zoster Immunization (1 of 2) 1994 Respiratory Syncytial Virus (RSV) Immunization (Adult) (1 - 1-dose 75+ series) 09/18/2019 Influenza Immunization (#1) 2023 02/03/2012 SARS-COV-2 Immunization ( season) 2023 08/03/2020, 07/11/2020 DEXA Bone Density 06/06/2024 06/06/2022 Colonoscopy High Risk Discontinued 04/23/2018 Colonoscopy Discontinued 04/23/2018 Colorectal Cancer Screening Discontinued Immunochemical Fecal Occult Blood Discontinued 08/28/2018 Pneumococcal Immunization (5 0+ years) Completed 05/11/2020, 06/08/2018 Pneumococcal Immunization Combined Discontinued 05/11/2020, 06/08/2018 Cologuard Discontinued Hepatitis B Immunization Aged Out No longer eligible based on patient's age to complete this topic Meningococcal Immunization (ACWY) Aged Out No longer eligible based on patient's age to complete this topic Rotavirus Immunization Aged Out No lo nger eligible based on patient's age to complete this topic Procedures Procedure Name Priority Date/Time Associated Diagnosis Comments STOOL, OCCULT BLOOD, SCREEN Routine 08/28/2018 from Last 3 Months or Most Recently Relevant to Health Maintenance Results * STOOL, OCCULT BLOOD, SCREEN FOR CA (08/28/2018) Stool specimen (specimen) STOOL SPECIMEN / Unknown us Not On File Provider URINE ORDERABLES Final Resu lt from Last 3 Months or Most Recently Relevant to Health Maintenance Insurance MEDICARE C [employer] Care Teams Criminology Teacher Relationship Specialty Start Date End Date Luís Rodriguez MD [address] [place] [address] PCP - General Family Medicine 03/22/18
--- OUTSIDE RECORDS SUMMARY | 2024-05-09 12:47 | XMS_ITS | Encounter Summary ---
Author Organization [facility] Address [address] [place] [address] Phone Care Team Providers Care Broadcast Chief Engineer Name Role Phone Mauricio Bucio MD Unavailable [phone] Jordy Perez MD Unavailable John Bellamy BUTTON SEWER Primary Care Provider [phone] Be Gomez MD Unavailable Stephanie Davidson PhD Unavailable [phone] Tram Alejandro MD Unavailable [phone] John Bellamy BUTTON SEWER Primary Care Provider [phone] Lolis Leyva MD Primary Care Provider Emerald Brown MD Unavailable [phone] Encounter Details Date Type Department Care Team (Late st Contact Info) Description 09/26/2018 Social Work [facility] Oncology [address] 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 Sex: female (home) [address]: [address] [place] [address] PCP: John TSE was notified that a co pay jeffery had opened with the [facility]. SW called patient todiscuss, patient would like this SW to apply on behalf of the patient. [employer]MEN[employer]A applied and patient has been approved. CARMENCITA provided patients pharmacy with Co Pay card information which was ran appropriately. CARMEN[employer]A called patient to notify, left VM. Jeffery is good for one year. [facility] ID: [id number] PCN: [id number] [id number] BIN: [id number] I will remain available to assist as needed. SAMIR Salazar documented in this encounter Plan of Treatment Not on file documented as of this encounter Visit Diagnoses Not on filedocumented in this encounter Care Teams Broadcast Chief Engineer Relationship Specialty Start Date End Date John Bellamy NP [address] [facility] [address] [place] [address] PCP - General 06/09/18 01/07/20 John Bellamy NP [address] [place] [address] PCP - General 01/08/20 05/11/20 Lolis Leyva MD [address] [facility] [address] [place] [address] PCP - General Family Practice 05/12/20 Mauricio Bucio MD [address] [place] [address] Referring Physician Surgical Oncology 06/08/18 Jordy Perez MD [address] [facility] [address] [place] [address] Radiation Oncologist Radiation Oncology 06/08/18 Be Gomez MD [address] [facility] [address] [place] [address] Referring Physician Medical Oncology 06/14/18 01/03/21 Stephanie Davidson, PhD [address] [facility] [address] [place] [address] Nurse Practitioner Radiation Oncology 06/14/18 Tram Alejandro MD [address] [place] [address] Referring Physician Gastroenterology 08/13/18 Emerald Brown MD [address] [place] [address] [address] [place] [address] Surgeon Breast Surgery 01/04/21 07/13/21 documented as of this encounter
--- OUTSIDE RECORDS SUMMARY | 2024-05-09 12:47 | XMS_ITS | Encounter Summary ---
Author Organization [facility] Address [address] [place] [address] Phone Care Team Providers Care Cleat Maker Name Role Phone Mauricio Bucio MD Unavailable Jordy Perez MD Unavailable John Bellamy DRAPERY SEWER HAND Primary Care Provider [phone] Be Gomez MD Unavailable Stephanie Davidson PhD Unavailable [phone] Tram Alejandro MD Unavailable [phone] John Bellamy DRAPERY SEWER HAND Primary Care Provider [phone] Lolis Leyva MD Primary Care Provider Emerald Brown MD Unavailable [phone] Encounter Details Date Type Department Care Team (Late st Contact Info) Description 10/23/2018 Social Work [facility] Oncology [address] 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 Sex: female (home) Address: [address] [place] [address] PCP: John TSE was consulted by MARQUEZ Garcia to meet with patient. Patient presented today with additional information such as proof of income, to provide to [employer]. SW sent additional information, no additional needs at this time. I will remain available to assist as needed. SAMIR Salazar documented in this encounter Plan of Treatment Not on file documented as of this encounter Visit Diagnoses Not on filedocumented in this encounter Care Teams Cleat Maker Relationship Specialty Start Date End Date John Bellamy NP [address] [facility] [place] [facility] # LL LL [address] [place] [address] PCP - General 06/09/18 01/07/20 John Bellamy NP [address] [place] [address] PCP - General 01/08/20 05/11/20 Lolis Leyva MD [address] [place] [address] [address] [place] [address] PCP - General Family Practice 05/12/20 Mauricio Bucio MD [address] [place] [address] Referring Physician Surgical Oncology 06/08/18 Jordy Perez MD [address] LL [address] [place] [address] Radiation Oncologist Radiation Oncology 06/08/18 Be Gomez MD [address] # LL [facility] [address] [place] [address] Referring Physician Medical Oncology 06/14/18 01/03/21 Stephanie Davidson, PhD [address] # LL [facility] [address] [place] [address] Nurse Practitioner Radiation Oncology 06/14/18 Tram Alejandro MD [address] [address] Referring Physician Gastroenterology 08/13/18 Emerald Brown MD [address] [place] [address] [address] [place] [address] Surgeon Breast Surgery 01/04/21 07/13/21 documented as of this encounter
[2024-05-09 14:41] LABS: Anion Gap 11 mmol/L (4-12); Blood Urea Nitrogen 11 mg/dL (7-17); Calcium 9.1 mg/dL (8.4-10.2); Carbon Dioxide 30 mmol/L (22-30); Chloride 100 mmol/L (98-107); Estimated Glomerular Filt Rate > 60; Glucose 82 mg/dL (65-110); Potassium 3.3 mmol/L (3.4-5.0); Sodium 141 mmol/L (137-145)
== END 2024-05-09 12:44 | disposition home or self-care (01) ==
LOC: ANHGOSHLAB 12:44
PROVIDERS: PCP Family Medicine; Visit Provider Family Medicine
DX: E87.6 Hypokalemia (principal)
CPT/HCPCS: 36415; 80048

== ENCOUNTER 2024-05-17 00:46 | Day surgery (SDC) | payer MEDICARE, SELFPAY ==
[2024-04-30 14:48] VITALS: BMI 34.3
--- OUTSIDE RECORDS SUMMARY | 2024-05-17 00:50 | XMS_ITS | Encounter Summary ---
Author Organization [facility] Address [address] [place] [address] Phone Care Team Providers Care Industrial Retrofit Designer Name Role Phone John Bellamy NP Primary Care Provider [phone] Mauricio Bucio MD Unavailable [phone] Jordy Perez MD Unavailable Luís Rodriguez MD Primary Care Provider + [phone] John Bellamy NP Primary Care Provider [phone] Be Gomze MD Unavailable [phone] Stephanie Davidson PhD Unavailable [phone] Tram Alejandro MD Unavailable [phone] John Bellamy PEN MAKER Primary Care Provider [phone] Lolis Leyva MD Primary Care Provider Emerald Brown MD Unavailable [phone] Encounter Details Date Type Department Care Team (Latest Contact Info) Description 08/10/2017 Orders Only [facility] Scanning, Provider Social History Tobacco Use Types Packs/Day Years Used Date Smoking Tobacco: Never Assessed Comments Unknown Sex and Gender Information Value Date Recorded Sex Assigned at Not on file 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 Gender Identity Not on file Sexual Orientation [...] on filedocumented in this encounter Care Teams Industrial Retrofit Designer Relationship Specialty Start Date End Date John Bellamy NP PCP - General Nurse Practitioner 03/23/18 06/07/18 Luís Rodriguez MD [address] [place] [address] PCP - General Family Practice 06/08/18 06/08/18 John Bellamy NP PCP - General 06/09/18 01/07/20 John Bellamy NP [address] [place] [address] PCP - General 01/08/20 05/11/20 Lolis Leyva MD [address] [facility] [address] [place], [place] [address] PCP - General Family Practice 05/12/20 Mauricio Bucio MD [address] [place], [place] [address] Referring Physician Surgical Oncology 06/08/18 Jordy Perez MD [address] [facility] # LL LL [address] [place], [place] [address] Radiation Oncologist Radiation Oncology 06/08/18 Be Gomez MD [address] [place] [address] Referring Physician Medical Oncology 06/14/18 01/03/21 Stephanie Davidson, PhD [address] [place] [address] Nurse Practitioner Radiation Oncology 06/14/18 Tram Alejandro MD [address] [address] Referring Physician Gastroenterology 08/13/18 Emerald Brown MD [address] [place] [address] [address] [place], [place] [address] Surgeon Breast Surgery 01/04/21 07/13/21 documented as of this encounter
--- OUTSIDE RECORDS SUMMARY | 2024-05-17 00:50 | XMS_ITS | Continuity of Care Document ---
Author Organization [facility] Address [address] [place] [address] Phone Care Team Providers Care Caterpillar Driver Name Role Phone Jaron Garcia Unavailable Unavailable [...] Diagnoses Date Provider Providers Copied on Encounter [facility], [address] [place] [address] [address], [place], [place], [id number], tel:[phone] SEC [facility] [place] No Information 6-201 0 Radha Salmeron. [address] [facility] , [address], [place], [address], [place]. tel:[phone] [facility], [address] [place] [address] [address], [place], [place], [id number], [place] tel:[phone] SEC [facility] No Information 2-201 0 Radha Salmeron. [address], [address], [place], [address], [place]. tel:[phone] [facility], [address] [place] [address] [address], [place], [place], [address], [place] tel:[phone] SEC [facility] No Information Mar- 7-201 0 Radha Edjose. [address] [place], [place] [address]ate Center , [address], [place], [place], [facility], . tel:[phone] Referring Provider: Will Dixon, [facility] Corporate Center [address], [place], [place], [facility]. tel:[phone] [facility], [address] [place] [address] [address], [place], [place], [id number], [place] tel:[phone] [facility] No Information Jun- 6-201 0 Radha Edjose. [address] [place], [place] [address]ate Center , [address], [place], [place], [facility], [place]. tel:[phone] Referring Provider: Will Dixon, [facility] Corporate Center [address], [place], [place], [facility]. tel:[phone] Office/outpat ient Visit, [facility], [address] [place] [address] [address], [place], [place], [address], [place] tel:[phone] SEC [facility] Corporate Center No Information Jun-1 2-201 0 Radha Edjose. [facility] , [address], [place], [place], [facility], [place]. tel:[phone] Referring Provider: Jaron Dixon, [facility] Corporate Center [address], [place], [facility]. tel:[phone] Office/outpat ient Visit, [facility], [address] [place] [address] [address], [place], [place], [address], [place] tel:[phone] [facility] Corporate Center No Information Apr- 5-200 9 Radha Edjose. [facility] , [address], [place], [place], [facility], [place]. tel:[phone] Referring Provider: Will Diehl OD A, [address] [place], [place] [address]ate [place] [address], [place], [facility]. tel:[phone] [facility], [address], [place], [place], [id number], tel:[phone] SEC [facility] [place] No Information Mar-2 5-200 9 Diehl OD Will. [address] [place] [address] Center , [address], [place], [address], [place]. tel:[phone] [facility], [address], [place], [place], [address], tel:[phone] SEC [facility] No Information Mar-1 9-200 8 Diehl OD Will. [address] [place] [address] , [address], [place], [address], [place]. tel:[phone] [facility], [address], [place], [place], [address], [place] tel:[phone] SEC [facility] No Information Mar-1 3-200 7 Floriilsa Rogelio. [address] [facility], [address], [place], [place], [address], [place]. tel:[phone] Family History Family Member Type Diagnosis Age At Onset No Information Payers Payer name Insurance type Covered alliance party ID Authoriza tion(s) No Information Social History [...]
--- OUTSIDE RECORDS SUMMARY | 2024-05-17 00:50 | XMS_ITS ---
Author Organization [facility] Address [address] [place] [address] Care Team Providers Care Machine Setup Operator Name Role Phone Mauricio Bucio MD Unavailable [phone] Jordy Perez MD Unavailable Stephanie Davidson PhD Unavailable [phone] Tram Alejandro MD Unavailable [phone] Lolis Leyva MD Primary Care Provider Active Problems Problem Noted Date Diagnosed Date L4-5 facet synovitis 06/30/2020 Lumbar spondylosis 06/30/2020 Cervical spondylosis 06/30/2020 Iron deficiency anemia 11/15/2018 Encounter for follow-up surveillance of breast c ancer 10/23/2018 residential current use of aromatase inhibitor Prevention of bone loss 10/23/2018 Malignant neoplasm of lower- inner quadrant of left breast in female, estrogen receptor positive 05/03/2018 Cancer Staging:Clinical stage from 05/15/2018:Stage IA(cT1c, cN0, cM0, G3, ER+, DE+, HER2+) - Signed by Stephanie Davidson, PhD on 06/14/2018 Pathologic stage from 05/15/2018:Stage IA(pT1b(m), pN0(sn), cM0, G3, ER+, DE+, HER2+) - Signed by Stephanie Davidson, PhD on 06/14/2018 Overview (05/03/2018): Added automatically from request for surgery [id number] Left breast mass 04/20/2018 Encounter for general [...]
--- OUTSIDE RECORDS SUMMARY | 2024-05-17 00:50 | XMS_ITS | Encounter Summary ---
Author Organization [facility] Address [address] [place] [address] Care Team Providers Care Business Owner/Engineer Name Role Phone Mauricio Bucio MD Unavailable [phone] Jordy Perez MD Unavailable Be Gomez MD Unavailable [phone] Stephanie Davidson PhD Unavailable [phone] Tram Alejandro MD Unavailable Lolis Leyva MD Primary Care Provider Rocky PointEmerald zaldivar MD Unavailable [phone] Encounter Details Date Type Department Care Team (Late st Contact Info) Description 05/27/2020 Telephone [facility] 1 [place] [address] Catherine Fragoso, RT Social History Tobacco Use [...] of Binge Drinking Not on file 06/02 [facility] [place] of Occupat ional Health - Occupational Stress Questionnaire Answer Date Recorded Feeling of Stress Very much 06/14/2018 Exercise Vital Sign Answer Date Recorde d Days of Exercise per Week 0 days 2018 Minutes of Exercise per Session 0 min 06/14/2018 Comments No Sex and Gender Information Value Date Recorded Sex Assigned at Not on file Legal Sex Female 6:19 PM HOLLOW TILE PARTITION ERECTOR Gender Identity Not on file Sexual Orientation [...] on filedocumented in this encounter Care Teams Business Owner/Engineer Relationship Specialty Start Date End Date Lolis Leyva MD [address] [facility] 2 [place], [place] [id number] PCP - General Family Practice 05/12/20 Mauricio Bucio MD [address] [place] [address] Referring Physician Surgical Oncology 06/08/18 Jordy Perez MD [address] # LL [facility] [address] [place] [address] Radiation Oncologist Radiation Oncology 06/08/18 Be Gomez MD [address] # LL LL [address] [place] [address] Referring Physician Medical Oncology 06/14/18 01/03/21 Stephanie Davidson, PhD [address] # LL LL [address] [place] [address] Nurse Practitioner Radiation Oncology 06/14/18 Tram Alejandro MD [address] [address] Referring Physician Gastroenterology 08/13/18 Emerald Brown MD [facility] [address] [place] [address] Surgeon Breast Surgery 01/04/21 07/13/21 documented as of this encounter
--- OUTSIDE RECORDS SUMMARY | 2024-05-17 00:50 | XMS_ITS | Encounter Summary ---
Author Organization [facility] Address [address] [place] [address] Phone Care Team Providers Care Barrel Rifler Name Role Phone Mauricio Bucio MD Unavailable Jordy Perez MD Unavailable John Bellamy BASKETBALL SCOUT Primary Care Provider [phone] Be Gomez MD Unavailable [phone] Stephanie Davidson PhD Unavailable [phone] Tram Alejandro MD Unavailable [phone] John Bellamy BASKETBALL SCOUT Primary Care Provider [phone] Lolis Leyva MD Primary Care Provider Emerald Brown MD Unavailable [phone] Encounter Details Date Type Department Care Team (Late st Contact Info) Description 10/23/2018 Social Work [facility] Oncology [address] [facility] [address] [place] [address] Nimisha Velázquez, [address] [place] [place] [address] Social History Tobacco Use Types Packs/Day Years [...] of Binge Drinking Not on file 06/02 [facility] [place] of Occupat ional Health - Occupational Stress Questionnaire Answer Date Recorded Feeling of Stress Very much 06/14/2018 Exercise Vital Sign Answer Date Recorde d Days of Exercise per Week 0 days 2018 Minutes of Exercise per Session 0 min 06/14/2018 Comments No Sex and Gender Information Value Date Recorded Sex Assigned at Not on file Legal Sex Female 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 Sex: female (home) Address: [address] [place] [address] PCP: John TSE was consulted by MARQUEZ [...] on filedocumented in this encounter Care Teams Barrel Rifler Relationship Specialty Start Date End Date John Bellamy NP [address] [facility] # LL LL [address] [place] [address] PCP - General 06/09/18 01/07/20 John Bellamy NP [address] [place] [address] PCP - General 01/08/20 05/11/20 Lolis Leyva MD [address] [place] [address] [address] [place] [address] PCP - General Family Practice 05/12/20 Mauricio Bucio MD [address] [place] [address] Referring Physician Surgical Oncology 06/08/18 Jordy Perez MD [address] LL [address] [place] [address] Radiation Oncologist Radiation Oncology 06/08/18 Be Gomez MD [address] # LL [facility] [address] [place] [address] Referring Physician Medical Oncology 06/14/18 01/03/21 Stephanie Davidson, PhD [address] # LL [facility] [address] [place] [address] Nurse Practitioner Radiation Oncology 06/14/18 Tram Alejandro MD [address] [address] Referring Physician Gastroenterology 08/13/18 Emerald Brown MD [address] [place] [address] [address] [place] [address] Surgeon Breast Surgery 01/04/21 07/13/21 documented as of this encounter
--- OUTSIDE RECORDS SUMMARY | 2024-05-17 00:50 | XMS_ITS | Encounter Summary ---
Author Organization [facility] Address [address] [place] [address] Phone Care Team Providers Care Wood Milling Machine Operator Name Role Phone Mauricio Bucio MD Unavailable [phone] Jordy Perez MD Unavailable John Bellamy SAW HANDLE ASSEMBLER Primary Care Provider [phone] Be Gomez MD Unavailable [phone] Stephanie Davidson PhD Unavailable [phone] Tram Alejandro MD Unavailable [phone] John Bellamy SAW HANDLE ASSEMBLER Primary Care Provider [phone] Lolis Leyva MD Primary Care Provider Emerald Brown MD Unavailable [phone] Encounter Details Date Type Department Care Team (Late st Contact Info) Description 12/06/2018 Social Work [facility] Oncology [address] [facility] [address] [place] [address] Nimisha Velázquez, [address] [place] [address] Social History Tobacco Use Types Packs/Day Years [...] of Binge Drinking Not on file 06/02 [facility] [place] of Occupat ional Health - Occupational Stress Questionnaire Answer Date Recorded Feeling of Stress Very much 06/14/2018 Exercise Vital Sign Answer Date Recorde d Days of Exercise per Week 0 days 2018 Minutes of Exercise per Session 0 min 06/14/2018 Comments No Sex and Gender Information Value Date Recorded Sex Assigned at Not on file Legal Sex Female 6:19 PM C.O.D. BILLER Gender Identity Not on file Sexual Orientation [...] Age: 73 y.o. Sex: female (home) Address: [address] [place] [address] PCP: John TSE received PC from patient, patient states she is wanting to send a bill to [facility] but cannot find the number. SW provided patient with phone number for [place] to [place]. No additional needs at this time. I will remain available to assist as needed. SAMIR Salazar documented in this encounter Plan of Treatment Not on file documented as of this encounter Visit Diagnoses Not on filedocumented in this encounter Care Teams Wood Milling Machine Operator Relationship Specialty Start Date End Date John Bellamy NP [address] [facility] # LL LL [address] [place] [address] PCP - General 06/09/18 01/07/20 John Bellamy NP [address] [place] [address] PCP - General 01/08/20 05/11/20 Lolis Leyva MD [address] [place] [address] [address] [place] [address] PCP - General Family Practice 05/12/20 Mauricio Bucio MD [address] [place] [address] Referring Physician Surgical Oncology 06/08/18 Jordy Perez MD [address] LL [address] [place] [address] Radiation Oncologist Radiation Oncology 06/08/18 Be Gomez MD [address] LL LL [address] [place] [address] Referring Physician Medical Oncology 06/14/18 01/03/21 Stephanie Davidson, PhD [address] [facility] [address] [place] [address] Nurse Practitioner Radiation Oncology 06/14/18 Tram Alejandro MD [address] [address] Referring Physician Gastroenterology 08/13/18 Emerald Brown MD [address] [place] [address] [address] [place] [address] Surgeon Breast Surgery 01/04/21 07/13/21 documented as of this encounter
--- OUTSIDE RECORDS SUMMARY | 2024-05-17 00:50 | XMS_ITS | Referral Summary ---
Author Organization [facility] Address [address] [place] [address] Care Team Providers Care Group Exercise Class Instructor Name Role Phone Mauricio Bucio MD Unavailable [phone] Jordy Perez MD Unavailable Stephanie Davidson PhD Unavailable [phone] Tram Alejandro MD Unavailable [phone] Lolis Leyva MD Primary Care Provider Encounters Date Type Department Care Team Description 04/05/2024 10:30 AM CRUSHER LOADER OPERATOR - 04/05/2024 11:59 PM [facility] [place] Hospital Encounter [facility] Imaging and Radiology [address] [place] [address] Breast cancer screening by mammogram [...] follow-up surveillance of breast c ancer 10/23/2018 technician terminal and repeater current use of aromatase inhibitor Prevention of bone loss 10/23/2018 Malignant neoplasm of lower- inner quadrant of left breast in female, estrogen receptor positive 05/03/2018 Cancer Staging:Clinical stage from 05/15/2018:Stage IA(cT1c, cN0, cM0, G3, ER+, ID+, HER2+) - Signed by Stephanie Davidson, PhD on 06/14/2018 Pathologic stage from 05/15/2018:Stage IA(pT1b(m), pN0(sn), cM0, G3, ER+, ID+, HER2+) - Signed by Stephanie Davidson, PhD on 06/14/2018 Overview (05/03/2018): Added automatically from request for surgery [id number] Left breast mass 04/20/2018 Encounter for general [...] of Binge Drinking Not on file 06/02 [facility] of Occupat ional Health - Occupational Stress Questionnaire Answer Date Recorded Feeling of Stress Very much 06/14/2018 Exercise Vital Sign Answer Date Recorde d Days of Exercise per Week 0 days 2018 Minutes of Exercise per Session 0 min 06/14/2018 Comments No Sex and Gender Information Value Date Recorded Sex Assigned at Not on file Legal Sex Female 6:19 PM CRUSHER LOADER OPERATOR Gender Identity Not on file Sexual Orientation [...] on file Medical Devices Explanted Type Area Guest Services Agent Device Identifier Shelf Expiration Date Model / Serial / Lot Bard Peripheral Vascular [id number] Powerport Clearvue Airguard 8fr 1 Lumen Lightweight Intermediate Latex Free - [id number] Implanted:Qty: 1 on 07/06/2018 by Mauricio Bucio MD at [facility] Explanted:Qty: 1 on 01/08/[address] [facility] Right: Subclavian Bard Peripheral Vascular [id number] / / Procedures Procedure Name Priority Date/Time Associated Diagnosis Comments SCREENING MAMMOGRAM BILATERAL W JESSICA Schedule Routine, Read Routine (OP Routine) 04/05/2024 11:18 AM CRUSHER LOADER OPERATOR Breast cancer screening by mammogram DEXA AXIAL SKELETON BONE DENSITY 1 OR MORE SITES Schedule Routine, Read Routine (OP Routine) 06/06/2022 10:25 AM CRUSHER LOADER OPERATOR technician terminal and repeater current use of aromatase inhibitor from Last 3 Months or Most Recently Relevant to Health Maintenance Results * Screening Mammogram Bilateral W Jessica (04/05/2024 11:18 AM CRUSHER LOADER OPERATOR) Anatomical Region Laterality Modality Breast Bilateral Mammography 04/05/2024 11:5 9 AM CRUSHER LOADER OPERATOR Impressions 04/05/2024 11:59 AM CRUSHER LOADER OPERATOR No evidence of malignancy in either breast. FINAL ASSESSMENT: BI-RADS Category 2: Benign. RECOMMENDATION: Recommend return for annual screening mammogram in 12 months. Electronically signed by: Callie Crawford M.D. Narrative 04/05/2024 11:59 AM CRUSHER LOADER OPERATOR EXAMINATION: BILATERAL SCREENING MAMMOGRAM COMPARISON: All prior [...] 1 or 2 Site (06/06/2022 10:25 AM CRUSHER LOADER OPERATOR) Anatomical Region Laterality Modality Body N/A Other 06/06/2022 5:20 PM CRUSHER LOADER OPERATOR Narrative 06/06/2022 5:21 PM CRUSHER LOADER OPERATOR EXAM DESCRIPTION: DEXA AXIAL SKELETON BONE DENSITY 1 OR MORE SITES REASON FOR STUDY: 76 y/o year old F with given history of screening. Postmenopausal Guest Services Agent/Model: [employer] (S/N [id number]) CLINICAL INFORMATION: Current height: 64 inches Maximum [...] Pablo Magaña M.D. MF: ROSA Report ID: [id number] Reading Location: [place] [address] Procedure Note Pablo Magaña MD - 06/06/2022 EXAM DESCRIPTION: DEXA AXIAL SKELETON BONE DENSITY 1 OR MORE SITES REASON FOR STUDY: 76 y/o year old F with given history ofscreening. Postmenopausal Guest Services Agent/Model: [employer] SL (S/N [id number]) CLINICAL INFORMATION: Current height: 64 inches Maximum [...] Pablo Magaña M.D. MF: ROSA Report ID: [id number] Reading Location: [place] [address] Balbina Van Christina SUPERVISOR VENDOR QUALITY IMG DXA PROCEDURES Final R esult from Last 3 Months or Most Recently Relevant to Health Maintenance Insurance HEALTHCARE HEALTHCARE WELLCARE MEDICARE HMO WELLCARE MEDICARE HMO Care Teams Group Exercise Class Instructor Relationship Specialty Start Date End Date Lolis Leyva MD [address] [facility] 2 [place] [address] PCP - General Family Practice 05/12/20 Mauricio Bucio MD [address] [place] [address] Referring Physician Surgical Oncology 06/08/18 Jordy Perez MD [address] [place] [address] Radiation Oncologist Radiation Oncology 06/08/18 Stephanie Davidson, PhD [address] [place] [address] Nurse Practitioner Radiation Oncology 06/14/18 Tram Alejandro MD [address] [address] Referring Physician Gastroenterology 08/13/18
--- OUTSIDE RECORDS SUMMARY | 2024-05-17 00:50 | XMS_ITS | Clinical Summary ---
Author Organization [facility] Address [address] [place] [address] Care Team Providers Care It Network Administrator Name Role Phone Mauricio Bucio MD Unavailable Jordy Perez MD Unavailable Stephanie Davidson PhD Unavailable [phone] Tram Alejandro MD Unavailable [phone] Lolis Leyva MD Primary Care Provider Allergies [...] follow-up surveillance of breast c ancer 10/23/2018 nursing home current use of aromatase inhibitor Prevention of bone loss 10/23/2018 Malignant neoplasm of lower- inner quadrant of left breast in female, estrogen receptor positive 05/03/2018 Cancer Staging:Clinical stage from 05/15/2018:Stage IA(cT1c, cN0, cM0, G3, ER+, AR+, HER2+) - Signed by Stephanie Davidson, PhD on 06/14/2018 Pathologic stage from 05/15/2018:Stage IA(pT1b(m), pN0(sn), cM0, G3, ER+, AR+, HER2+) - Signed by Stephanie Davidson, PhD on 06/14/2018 Overview (05/03/2018): Added automatically from request for surgery [id number] Left breast mass 04/20/2018 Encounter for general [...] Department Care Team Description 04/05/2024 10:30 AM ACTIVITY DIRECTOR - 04/05/2024 11:59 PM ACTIVITY DIRECTOR Hospital Encounter [facility] Imaging and Radiology [address] [place] [address] Breast cancer screening by mammogram Discharge Disposition: [...] of Binge Drinking Not on file 06/02 [facility] of Occupat ional Health - Occupational Stress Questionnaire Answer Date Recorded Feeling of Stress Very much 06/14/2018 Exercise Vital Sign Answer Date Recorde d Days of Exercise per Week 0 days 2018 Minutes of Exercise per Session 0 min 06/14/2018 Comments No Sex and Gender Information Value Date Recorded Sex Assigned at Not on file Legal Sex Female 6:19 PM ACTIVITY DIRECTOR Gender Identity Not on file Sexual Orientation [...] 05/11/2020, 11/2018 Medical Devices Explanted Type Area Conditioner Tumbler Operator Device Identifier Shelf Expiration Date Model / Serial / Lot Bard Peripheral Vascular [id number] Powerport Clearvue Airguard 8fr 1 Lumen Lightweight Intermediate Latex Free - [id number] Implanted:Qty: 1 on 07/06/2018 by Mauricio Bucio MD at [facility] Explanted:Qty: 1 on 01/08/2020 at [facility] Right: Subclavian Bard Peripheral Vascular [id number] / / Procedures Procedure Name Priority Date/Time Associated Diagnosis Comments SCREENING MAMMOGRAM BILATERAL W RAY Schedule Routine, Read Routine (OP Routine) 04/05/2024 11:18 AM ACTIVITY DIRECTOR Breast cancer screening by mammogram DEXA AXIAL SKELETON BONE DENSITY 1 OR MORE SITES Schedule Routine, Read Routine (OP Routine) 06/06/2022 10:25 AM ACTIVITY DIRECTOR nursing home current use of aromatase inhibitor from Last 3 Months or Most Recently Relevant to Health Maintenance Results * Screening Mammogram Bilateral W Ray (04/05/2024 11:18 AM ACTIVITY DIRECTOR) Anatomical Region Laterality Modality Breast Bilateral Mammography 04/05/2024 11:5 9 AM ACTIVITY DIRECTOR Impressions 04/05/2024 11:59 AM ACTIVITY DIRECTOR No evidence of malignancy in either breast. FINAL ASSESSMENT: BI-RADS Category 2: Benign. RECOMMENDATION: Recommend return for annual screening mammogram in 12 months. Electronically signed by: Callie Crawford M.D. Narrative 04/05/2024 11:59 AM ACTIVITY DIRECTOR EXAMINATION: BILATERAL SCREENING MAMMOGRAM COMPARISON: All prior [...] 1 or 2 Site (06/06/2022 10:25 AM ACTIVITY DIRECTOR) Anatomical Region Laterality Modality Body N/A Other 06/06/2022 5:20 PM ACTIVITY DIRECTOR Narrative 06/06/2022 5:21 PM ACTIVITY DIRECTOR EXAM DESCRIPTION: DEXA AXIAL SKELETON BONE DENSITY 1 OR MORE SITES REASON FOR STUDY: 76 y/o year old F with given history of screening. Postmenopausal Conditioner Tumbler Operator/Model: [employer] SL (S/N [id number]) CLINICAL INFORMATION: Current height: 64 inches Maximum [...] Pablo Magaña M.D. MF: ROSA Report ID: [id number] Reading Location: [place] [address] Procedure Note Pablo aMgaña MD - 06/06/2022 EXAM DESCRIPTION: DEXA AXIAL SKELETON BONE DENSITY 1 OR MORE SITES REASON FOR STUDY: 76 y/o year old F with given history ofscreening. Postmenopausal Conditioner Tumbler Operator/Model: [employer] SL (S/N [id number]) CLINICAL INFORMATION: Current height: 64 inches Maximum [...] Pablo Magaña M.D. MF: ROSA Report ID: [id number] Reading Location: [place] [address] Balbina Christina NP IMG DXA PROCEDURES Final R esult from Last 3 Months or Most Recently Relevant to Health Maintenance Insurance [facility] MEDICARE HMO [facility] MEDICARE O Care Teams It Network Administrator Relationship Specialty Start Date End Date Lolis Leyva MD [address] [facility] 2 [place] [address] PCP - General Family Practice 05/12/20 Mauricio Bucio MD [address] [place] [address] Referring Physician Surgical Oncology 06/08/18 Jordy Perez MD [address] [place] [address] Radiation Oncologist Radiation Oncology 06/08/18 Stephanie Davidson, PhD [address] [place] [address] Nurse Practitioner Radiation Oncology 06/14/18 Tram Alejandro MD [address] [address] Referring Physician Gastroenterology 08/13/18
--- OUTSIDE RECORDS SUMMARY | 2024-05-17 00:50 | XMS_ITS | Encounter Summary ---
Author Organization [facility] Address [address] [place] [address] Phone Care Team Providers Care Development Mgr Name Role Phone Mauricio Bucio MD Unavailable [phone] Jordy Perez MD Unavailable Be Gomez MD Unavailable Stephanie Davidson PhD Unavailable [phone] Tram Alejandro MD Unavailable [phone] John Bellamy NP Primary Care Provider [phone] Lolis Leyva MD Primary Care Provider Emerald Brown MD Unavailable [phone] Encounter Details Date Type Department Care Team [...] of Binge Drinking Not on file 06/02 [facility] of Occupat ional Health - Occupational Stress Questionnaire Answer Date Recorded Feeling of Stress Very much 06/14/2018 Exercise Vital Sign Answer Date Recorde d Days of Exercise per Week 0 days 2018 Minutes of Exercise per Session 0 min 06/14/2018 Comments No Sex and Gender Information Value Date Recorded Sex Assigned at Not on file Legal Sex Female 6:19 PM BEEF BREAKER Gender Identity Not on file Sexual Orientation [...] on filedocumented in this encounter Care Teams Development Mgr Relationship Specialty Start Date End Date John Bellamy NP [address] [place] [address] PCP - General 01/08/20 05/11/20 Lolis Leyva MD [address] [facility] [address] [place] [address] PCP - General Family Practice 05/12/20 Mauricio Bucio MD [address] [place] [address] Referring Physician Surgical Oncology 06/08/18 Jordy Perez MD [address] [facility] [address] [place], [place] [address] Radiation Oncologist Radiation Oncology 06/08/18 Be Gomez MD [address] [facility] [address] [place] [address] Referring Physician Medical Oncology 06/14/18 01/03/21 Stephanie Davidson, PhD [address] [facility] [address] [place] [address] Nurse Practitioner Radiation Oncology 06/14/18 Tram Alejandro MD [address] [address] Referring Physician Gastroenterology 08/13/18 ForestdaleEmerald zaldivar MD [address] [place] [address] 2 [place] [address] Surgeon Breast Surgery 01/04/21 07/13/21 documented as of this encounter
--- OUTSIDE RECORDS SUMMARY | 2024-05-17 00:50 | XMS_ITS | Encounter Summary ---
Author Organization [facility] Address [address] [place] [address] Phone Care Team Providers Care Registered Nurse Supervisor Name Role Phone Mauricio Bucio MD Unavailable Jordy Perez MD Unavailable John Bellamy BOOMBOAT OPERATOR Primary Care Provider [phone] Be Gomez MD Unavailable Stephanie Davidson PhD Unavailable [phone] Tram Alejandro MD Unavailable [phone] John Bellamy BOOMBOAT OPERATOR Primary Care Provider [phone] Lolis Leyva MD Primary Care Provider Emerald Brown MD Unavailable [phone] Encounter Details Date Type Department Care Team (Late st Contact Info) Description 09/26/2018 Social Work [facility] Oncology [address] [facility] [address] [place] [address] Nimisha Velázquez, [address] [place] [address] Social History Tobacco Use Types Packs/Day Years [...] of Binge Drinking Not on file 06/02 [facility] of Occupat ional Health - Occupational Stress Questionnaire Answer Date Recorded Feeling of Stress Very much 06/14/2018 Exercise Vital Sign Answer Date Recorde d Days of Exercise per Week 0 days 2018 Minutes of Exercise per Session 0 min 06/14/2018 Comments No Sex and Gender Information Value Date Recorded Sex Assigned at Not on file Legal Sex Female 6:19 PM FLEXIBLE NANNY Gender Identity Not on file Sexual Orientation [...] Age: 73 y.o. Sex: female (home) Address: [address] [place] [address] PCP: John TSE was notified that a co pay jeffery had opened with the [employer]. SW called patient todiscuss, patient would like this SW to apply on behalf of the patient. CARMEN[employer]A applied and patient has been approved. CARMENCITA provided patients pharmacy with Co Pay card information which was ran appropriately. CARMEN[employer]A called patient to notify, left VM. Jeffery is good for one year. [employer] [facility] ID: [id number] PCN: [id number] Group:[id number] BIN: [id number] I will remain available to assist as needed. SAMIR Salazar documented in this encounter Plan of Treatment Not on file documented as of this encounter Visit Diagnoses Not on filedocumented in this encounter Care Teams Registered Nurse Supervisor Relationship Specialty Start Date End Date John Bellamy NP [address] [facility] [address] [place] [address] PCP - General 06/09/18 01/07/20 John Bellamy NP [address] [place] [address] PCP - General 01/08/20 05/11/20 Lolis Leyva MD [address] [facility] 2 [place] [address] PCP - General Family Practice 05/12/20 Mauricio Bucio MD [address] [place] [address] Referring Physician Surgical Oncology 06/08/18 Jordy Perez MD [address] [facility] [address] [place] [address] Radiation Oncologist Radiation Oncology 06/08/18 Be Gomez MD [address] [facility] [address] [place] [address] Referring Physician Medical Oncology 06/14/18 01/03/21 Stephanie Davidson, PhD [address] [facility] [address] [place] [address] Nurse Practitioner Radiation Oncology 06/14/18 Tram Alejandro MD [address] [place] [address] Referring Physician Gastroenterology 08/13/18 Emerald Brown MD [address] [place] [address] [address] [place] [address] Surgeon Breast Surgery 01/04/21 07/13/21 documented as of this encounter
[2024-05-17 12:05] VITALS: BP 109/67; PULSE 84; RESP 16; TEMP 36.1; O2SAT 100; BMI 32.7
--- NOTE | 2024-05-17 12:22 | P.PNAN_ITS ---
Anes - Initial Pre Proc Eval Procedure: Operation Date: 05/17/24 13:30 Proposed Procedures p Colonoscopy - Jim Domingo MD Date/Time: 05/17/24 12:22 Surgeon: Jim Domingo MD Pre Op Diagnosis: Personal hx of colon polyps Patient Data Age: 78 Gender: F Height: 1.63 m Weight: 86.4 kg Last Vital Signs Temp 36.1 C L 05/17/24 12:05 Pulse 84 05/17/24 12:05 Resp 16 05/17/24 12:05 BP 109/67 05/17/24 12:05 Pulse Ox 100 05/17/24 12:05 O2 Del Method Room Air 05/17/24 12:05 Allergies Allergy/AdvReac Type Severity Reaction Status Date / Time No Known Allergies Allergy Verified 05/17/24 12:13 Home Medications ?Medication ?Instructions ?Recorded ?Confirmed ?Type aspirin 81 mg tablet,delayed 81 mg PO DAILY 02/14/19 05/17/24 History release (Adult Low Dose Aspirin) calcium carbonate (Calcium 500) 500 mg PO DAILY 02/14/19 05/17/24 History cholecalciferol (vitamin D3) 50 50 mcg PO DAILY 02/20/20 05/17/24 History mcg (2,000 unit) capsule ferrous sulfate 324 mg (65 mg 324 mg PO DAILY #90 tabs 01/11/24 05/17/24 Rx iron) tablet,delayed release triamterene 37.5 1 cap PO DAILY #90 caps 01/19/24 05/17/24 Rx mg-hydrochlorothiazide 25 mg capsule omeprazole 20 mg capsule,delayed 20 mg PO DAILY #90 caps 03/28/24 05/17/24 Rx release citalopram 10 mg tablet 10 mg PO DAILY #90 tabs 05/09/24 05/09/24 Rx potassium chloride 20 mEq 20 meq PO BID #180 tabs 05/09/24 05/17/24 Rx tablet,extended release semaglutide (weight loss) 0.25 0.25 mg (0.5 mL) subcut WEEKLY #2 05/09/24 05/17/24 Rx mg/0.5 mL subcutaneous pen mL injector (Jody) Patient hx anesthesia problems: none Family hx anesthesia problems: none Results Review: All pre-operative results and documents have been reviewed as part of the pre- operative evaluation. [facility] Past Medical History Medical History Sebaceous cyst Cervical cancer screening Hypokalemia Bilateral knee pain Obesity, morbid, BMI 40.0-49.9 Vitamin D deficiency Anxiety Depression History of tobacco use Spondylosis of cervical joint Osteopenia Osteoarthritis of both knees (~2002) Uterine fibroid Sleep apnea (~04/2019) CPAP GERD without esophagitis Essential (primary) hypertension CKD (chronic kidney disease) stage 3, GFR 30-59 ml/min Surgical History Surgical History History of partial mastectomy of left breast (~05/2018) H/O myomectomy (~04/2019) [place] teeth removed History of bladder suspension procedure (~1984) Family History Family History Father Family history of liver disease Mother Family history of kidney disease Sibling Breast cancer Hyperlipidemia Other Hypertension Social History Social History Social History: , 1 adult daughter lives nearby. Patient lives alone. Retired. Caffeine- daily Years smoked: 20 Smoking status: Former smoker Tobacco type: cigarettes Smoking end date: 04/03/79 Additional smoking assessment comments: 1 pack/week for about 15 years Alcohol intake: never Substance use: never Substance use type: does not use Lack of Transportation: No Lack of Food: Never True Current Housing: I Have Housing Concerned About Future Housing: No Difficulty Paying Gas/Electric Bills: No Difficulty Paying for Meds: No Currently Unemployed: No Education: High School Diploma/GED Difficulty w/ Childcare or Family Care: No Living arrangements: with family Spiritual care concerns: No Anes - Eval Final PreProcedure Day of Procedure 05/17/24 12:22 Patient weight: obese Heart: regular rate and rhythm Lungs: clear to auscultation Airway: Mallampati scale class II Neurological: alert and oriented Last oral intake: >/= 8 hours ASA classification: III Emergent: no Anesthetic plan: proceed Anesthesia type and monitoring: general GIVS and standard monitoring Results Review: All pre-operative results and documents have been reviewed as part of the pre- operative evaluation. Informed Consent: The patient's anesthetic plan and its attendant risks and benefits were discussed with the patient/family/POA. Questions were solicited and answers provided to the satisfaction of the patient/family/POA.
[2024-05-17] MEDS: LACTATED RINGERS 1,000 ML 150 ML IV CONT (12:29)
--- NOTE | 2024-05-17 12:29 | PM.HPGS ---
History of Present Illness History of Present Illness Consent: Risks, benefits, and alternatives have been discussed and questions answered. Patient agrees to proceed with procedure. Chief complaint: Personal hx of colon polyps Narrative: Lesia Weiner is a 78 year old female here for screening colonoscopy, last one 10 years ago Review of Systems Review of Systems: All systems reviewed & are unremarkable except as noted in HPI and below PMFSH Past Medical History Medical History (Updated 05/17/24 @ 12:30 by Jim Domingo MD) Colon cancer screening Sebaceous cyst Cervical cancer screening Hypokalemia Bilateral knee pain Obesity, morbid, BMI 40.0-49.9 Vitamin D deficiency Anxiety Depression History of tobacco use Spondylosis of cervical joint Osteopenia Osteoarthritis of both knees (~2002) Uterine fibroid Sleep apnea (~04/2019) CPAP GERD without esophagitis Essential (primary) hypertension CKD (chronic kidney disease) stage 3, GFR 30-59 ml/min Surgical History Surgical History History of partial mastectomy of left breast (~05/2018) H/O myomectomy (~04/2019) Rogers teeth removed History of bladder suspension procedure (~1984) Family History Family History Father Family history of liver disease Mother Family history of kidney disease Sibling Breast cancer Hyperlipidemia Other Hypertension Social History Social History Social History: , 1 adult daughter lives nearby. Patient lives alone. Retired. Caffeine- daily Years smoked: 20 Smoking status: Former smoker Tobacco type: cigarettes Smoking end date: 04/03/79 Additional smoking assessment comments: 1 pack/week for about 15 years Alcohol intake: never Substance use: never Substance use type: does not use Lack of Transportation: No Lack of Food: Never True Current Housing: I Have Housing Concerned About Future Housing: No Difficulty Paying Gas/Electric Bills: No Difficulty Paying for Meds: No Currently Unemployed: No Education: High School Diploma/GED Difficulty w/ Childcare or Family Care: No Living arrangements: with family Spiritual care concerns: No Meds Home Medications and Allergies Home Medications ?Medication ?Instructions ?Recorded ?Confirmed ?Type aspirin 81 mg tablet,delayed 81 mg PO DAILY 02/14/19 05/17/24 History release (Adult Low Dose Aspirin) calcium carbonate (Calcium 500) 500 mg PO DAILY 02/14/19 05/17/24 History cholecalciferol (vitamin D3) 50 50 mcg PO DAILY 02/20/20 05/17/24 History mcg (2,000 unit) capsule ferrous sulfate 324 mg (65 mg 324 mg PO DAILY #90 tabs 01/11/24 05/17/24 Rx iron) tablet,delayed release triamterene 37.5 1 cap PO DAILY #90 caps 01/19/24 05/17/24 Rx mg-hydrochlorothiazide 25 mg capsule omeprazole 20 mg capsule,delayed 20 mg PO DAILY #90 caps 03/28/24 05/17/24 Rx release citalopram 10 mg tablet 10 mg PO DAILY #90 tabs 05/09/24 05/09/24 Rx potassium chloride 20 mEq 20 meq PO BID #180 tabs 05/09/24 05/17/24 Rx tablet,extended release semaglutide (weight loss) 0.25 0.25 mg (0.5 mL) subcut WEEKLY #2 05/09/24 05/17/24 Rx mg/0.5 mL subcutaneous pen mL injector ([employer]) Allergies Allergy/AdvReac Type Severity Reaction Status Date / Time No Known Allergies Allergy Verified 05/17/24 12:13 Vital Signs Vital Signs - 24 hr 05/17/24 12:05 Temperature 96.9 F L Pulse Rate 84 Respiratory Rate 16 Blood Pressure 109/67 Pulse Oximetry 100 Oxygen Delivery Room Air Exam Const: General: comfortable and no acute distress HENMT: Face/Nose/Sinus: Normal nares present Eyes: General: appearance normal, both eyes and all related structures Neck: Neck: no JVD Resp: Auscultation: clear to auscultation bilaterally Cardio: Rate: regular rate Rhythm: regular rhythm GI: Inspection: non-distended GI Palp: Yes Soft to palpation Skin: General skin exam: normal color Neuro: General: gait normal Speech: normal speech Extrem: General: normal to inspection Psych: Mental Status: mental status grossly normal Assessment and Plan Assessment and plan (1) Colon cancer screening: Code(s): Z12.11 - Encounter for screening for malignant neoplasm of colon Status: Acute Assessment and Plan: colonoscopy
[2024-05-17 12:43] VITALS: BP 93/50; PULSE 73; RESP 16; O2SAT 100
[2024-05-17 12:53] VITALS: BP 110/56; PULSE 70; RESP 16; O2SAT 100
[2024-05-17 13:03] VITALS: BP 109/83; PULSE 69; RESP 18; O2SAT 100
== END 2024-05-17 13:16 | disposition home or self-care (01) ==
PROVIDERS: PCP Family Medicine; Visit Provider Internal Medicine Gastroenterology
PROC: 0DJD8ZZ Inspection of Lower Intestinal Tract, Via Natural or Artificial Opening Endoscopic (ICD-10-PCS; CPT 45378; principal; 2024-05-17 13:30)
DX: Z12.11 Encounter for screening for malignant neoplasm of colon (principal); K57.30 Diverticulosis of large intestine without perforation or abscess without bleeding; K64.8 Other hemorrhoids; Z86.0100 Personal history of colon polyps, unspecified
CPT/HCPCS: G0105; J2704; J7120

== ENCOUNTER 2024-05-31 07:51 | Outpatient (CLI) | payer MEDICARE, SELFPAY | END 2024-05-31 07:52 | disposition home or self-care (01) | PROVIDERS: PCP Family Medicine; Visit Provider Family Medicine | DX: R07.9 Chest pain, unspecified (principal) | CPT/HCPCS: 78452; 93017; A9502; J2785 ==

== ENCOUNTER 2024-08-13 14:10 | Outpatient (CLI) | payer MEDICARE, SELFPAY ==
--- NOTE | ~2024-08-13 | DEXA_ITS ---
Bone Density Report Name: FLAQUITO CUADRA Age: 78 Sex: Female Ethnicity: White Date of : 1945 Indication: postmenopausal; screening for osteoporosis; height loss; cancer; rheumatoid arthritis; Referring Provider: RENÉ, IRINA Larry Study: Bone densitometry was performed. Exam Date: August 13, 2024 Accession number: [id number] Bone Density: Region BMD T-score Z-score Classification AP Spine(L1-L4) 0.862 -1.7 1.0 Osteopenia Femoral Neck (Left) 0.681 -1.5 0.8 Osteopenia Total Hip (Left) 0.942 0.0 2.1 Normal Femoral Neck (Right) 0.513 -3.0 -0.7 Osteoporosis Total Hip (Right) 0.815 -1.0 1.0 Normal Total Hip Mean 0.879 -0.5 1.6 Normal World Health Organization criteria for BMD impression classify patients as: Normal (T-score at or above -1.0), Osteopenia (T-score between -1.0 and -2.5), or Osteoporosis (T-score at or below -2.5). 10-year Fracture Risk: FRAX not reported because: Some T-score for Spine Total or Hip Total or Femoral Neck at or below -2.5 Clinical Information Provided by Patient: Has rheumatoid arthritis Has used the following medications: Vitamin D, Calcium Has the following medical conditions: Cancer, Breast 2020 Patient maximum height was 65 Menopause Age: 59 No regular weight bearing exercise Does not regularly consume dairy products Drinks caffeinated beverages Onset of menses at age 11 Number of children 4 Missed period for more than 6 months in a row Impression: The patient has osteoporosis, based on the Right Femoral Neck T-score. Discussion: INCREASED RISK OF FRACTURE. BONE DENSITY IS UNDESIRABLY LOW AT ONE OR MORE SKELETAL SITES, CONSISTENT WITH POSTMENOPAUSAL OSTEOPOROSIS. This patient's lowest T-score meets the World Health Organization's (WHO) criteria for osteoporosis at one or more sites (T-score -2.5 or below). In untreated patients, the risk of osteoporotic fracture increases approximately two-fold for each 1.0 SD decrease in T-score. Low bone density is not the only risk factor for fracture; also consider factors such as patient's age, frailty or poor health, risk of falling, risk of injury, previous osteoporotic fracture, family history of osteoporosis, cigarette smoking, low body weight, etc. Not everyone with low bone mineral density has osteoporosis; osteomalacia and other metabolic bone disorders should also be considered. Patients who have osteoporosis should be evaluated for specific diseases and conditions (secondary causes) that may cause or contribute to bone loss. The [place] [employer] (AACE) and National Osteoporosis Foundation (NOF) recommend pharmacologic intervention for all postmenopausal women whose T-score is in this range. The patient should follow a healthful lifestyle (good nutrition with adequate calcium and vitamin D, and appropriate weight-bearing exercise). Follow-Up: Consider a repeat BMD and Vertebral Fracture Assessment (VFA) exam in 2 years or sooner if medically necessary, to reassess this patient's status. Reported by: SANJUANITA on 08/21/2024 12:48:00 PM. Reviewed, dictated and finalized at location [id number]
== END 2024-08-13 14:11 | disposition home or self-care (01) ==
LOC: MICIMG 14:17
PROVIDERS: PCP Nurse Practitioner; Visit Provider Nurse Practitioner
DX: M81.0 Age-related osteoporosis without current pathological fracture (principal); M85.89 Other specified disorders of bone density and structure, multiple sites; Z78.0 Asymptomatic menopausal state; Z13.820 Encounter for screening for osteoporosis
CPT/HCPCS: 77080